=== PATIENT | female | born 1940 | race Caucasian/White ===

== ENCOUNTER → 2021-04-01 10:37 | Outpatient (BNVA) | payer MEDICARE, OTHER, SELFPAY | PROVIDERS: Family Provider Nurse Practitioner; PCP Nurse Practitioner; Visit Provider Nurse Practitioner Family | DX: E78.5 Hyperlipidemia, unspecified (principal); R73.09 Other abnormal glucose; I10 Essential (primary) hypertension; E55.9 Vitamin D deficiency, unspecified; Z00.00 Encounter for general adult medical examination without abnormal findings; E78.2 Mixed hyperlipidemia | CPT/HCPCS: 80053; 80061; 81003; 82043; 82306; 83036; 84443; 85025 ==

== ENCOUNTER 2022-03-03 04:56 | Inpatient (IN) | payer MEDICARE, OTHER, SELFPAY ==
[2022-03-03] VITALS (8 sets, daily range): BP systolic 117–155; BP diastolic 72–90; PULSE 60–70; RESP 13–22; TEMP 36.4–36.9; O2SAT 95–99; BMI 29.0
--- NOTE | 2022-03-03 05:04 | USCV_ITS ---
Christine Alvarez Age: 82 Gender: F : 1940 Exam Date: 03/03/2022 09:15 Ordering Phys: Shaka Yo MD Technologist: Renaldo Christine Exam Location: [facility] [place] Indication: chest pain BP: 155 / 80 HR: 70 Rhythm: Sinus Technical Quality: Adequate MEASUREMENTS (Male / Female) Normal Values 2D ECHO LV Diastolic Diameter PLAX 3.6 cm 4.2 - 5.9 / 3.9 - 5.3 cm LV Systolic Diameter PLAX 2.1 cm IVS Diastolic Thickness 0.8 cm 0.6 - 1.0 / 0.6 - 0.9 cm IVS Systolic Thickness 1.3 cm LVPW Diastolic Thickness 0.7 cm 0.6 - 1.0 / 0.6 - 0.9 cm LVPW Systolic Thickness 0.7 cm LVOT Diameter 2.0 cm LV Ejection Fraction 2D Teich 72.3 % LV Ejection Fraction MOD 2C 69.0 % LV Ejection Fraction 2C AL 70.9 % LA Diameter 3.1 cm LA Width 3.2 cm LA Height 4.6 cm RA Width 3.5 cm RA Height 3.9 cm Aorta at Sinotubular Diameter 2.8 cm IVC Diameter 1.9 cm M-MODE Aortic Annulus Diameter 3.4 cm LA Ao Ratio MM 0.9 MV E Point Septal Separation 0.6 cm DOPPLER AV Peak Velocity 160.0 cm/s LVOT Peak Velocity 112.0 cm/s AV Area Cont Eq vti 2.2 cm squared AV Area Cont Eq pk 2.3 cm squared MV Peak Velocity 106.0 cm/s MV Area PHT 5.6 cm squared Mitral E to A Ratio 0.5 MV E' Velocity 25.5 cm/s Mitral E to MV E' Ratio 5.6 Mitral E to LV E' Lateral Ratio 5.1 Mitral E to LV E' Septal Ratio 6.3 TR Peak Velocity 281.6 cm/s TR Peak Gradient 31.7 mmHg TR Mean Velocity 216.8 cm/s TR Mean Gradient 20.2 mmHg TR Velocity Time Integral 81.1 cm Right Atrial Pressure 3.0 mmHg Pulmonary Artery Systolic Pressu 34.7 mmHg RV Acceleration Time 0.1 s RV Ejection Time 0.3 s RV AcT/ET 0.3 FINDINGS Left Ventricle Normal left ventricular size. LV systolic function is normal with EF of 60-65%. No regional wall motion abnormalities. Grade 1 diastolic dysfunction is seen Right Ventricle The right ventricle is normal in size and function. Right Atrium The right atrium is normal in size. Left Atrium The left atrium is normal in size. Mitral Valve Structurally normal mitral valve without significant stenosis or prolapse. There is trace mitral regurgitation. Aortic Valve Structurally normal aortic valve without significant sclerosis or stenosis. There is no aortic regurgitation. Tricuspid Valve Structurally normal tricuspid valve without significant stenosis. Mild tricuspid regurgitation. RVSP is 35-40mmHg. This is consistent with mild pulmonary hypertension Pulmonic Valve Structurally normal pulmonic valve without significant stenosis. There is mild pulmonic regurgitation. Pericardium Normal pericardium without effusion. Aorta Normal ascending aorta dimension. IVC CONCLUSIONS LV systolic function is normal with EF 60-65%. Grade 1 diastolic dysfunction. Trace mitral regurgitation. Mild tricuspid regurgitation. Mild pulmonary hypertension is seen. Mild pulmonic regurgitation. No comparison studies are available Valente Robb MD (Electronically Signed) Final Date: 03 March 2022 10:53 S
--- NOTE | 2022-03-03 05:07 | ECG_ITS ---
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 Measurements Intervals [place] Rate: 52 P: 43 [place]: 186 QRS: -33 QRSD: 94 T: -18 QT: 459 QTc: 429 Interpretive Statements SINUS BRADYCARDIA WITH SINUS ARRHYTHMIA POSSIBLE LEFT ATRIAL ENLARGEMENT [-0.1mV P-WAVE IN V1/V2] LEFT AXIS DEVIATION [QRS AXIS < -30] PATTERN CONSISTENT WITH PULMONARY DISEASE INCOMPLETE RIGHT BUNDLE BRANCH BLOCK [90+ ms QRS DURATION, TERMINAL R IN V1/V2, 40+ ms S IN I/aVL/V4/V5/V6] No previous ECG available for comparison Electronically Signed On 03-03-2022 22:32:20 CDT by Anastasiya Brennan M.D. [id number]
--- NOTE | 2022-03-03 05:10 | P.HP_ITS ---
Providers/Chief Complaint Admitting Physician: Shaka Yo MD Primary Care Provider: OTTONIEL Rowe Chief Complaint: Chest Pain History of Present Illness Christine Alvarez is a 82 year old female with past medical history of hypertension went to [place] [facility] with chief complaint of bilateral jaw pain started today radiating down the neck, she denied any chest pain, palpitation, diaphoresis, dizziness, shortness of breath, cough, fever chills nausea vomiting. Upon arrival in the ER she was worked up for above-mentioned complaint. When I evaluated the patient here, she was not complaining of any neck pain, or jaw pain, at baseline she is very active person , has denied any chest pain or shortness of breath with exertion.She has smoked very briefly for 2 to 3 years, quit 5 years back. Pertinent imaging studies: EKG:SINUS BRADYCARDIA WITH SINUS ARRHYTHMIA POSSIBLE LEFT ATRIAL ENLARGEMENT. Pertinent labs: WBC 7.7, H&H:13/42 , plt : 231 , serum sodium 137 serum potassium 3.9, BUN serum creatinine 30/1.5 Troponin trend: - Patient was started on heparin drip in the ER, she also received aspirin.Morphine for pain. Review of Systems General: Reports: 10 or more systems reviewed and unremarkable except in HPI and below Const: Denies: fever(s), chills, body aches, change in appetite or diaphoresis Card: Denies: palpitations, edema, swelling of feet/ankles, dyspnea on exertion, orthopnea or leg pain with exertion Resp: Denies: dyspnea, productive cough, wheezing or pain on inspiration GI: Denies: abdominal pain, nausea, vomiting, diarrhea or constipation : Denies: flank pain Musc: Denies: back pain, extremity pain or extremity swelling Neuro: Denies: headache(s), difficulty walking or confusion Medications/Allergies Home Medications Medication Instructions Recorded Confirmed Last Taken Type triamterene 37.5 1 cap PO DAILY 03/03/22 03/03/22 1 Day Ago History mg-hydrochlorothiazide 25 mg ~03/02/22 capsule Allergies Allergy/AdvReac Type Severity Reaction Status Date / Time dexamethasone [From Decadron] Allergy ALGY-Hives Verified 03/03/22 05:15 iodine Allergy ALGY-Hives Verified 03/03/22 05:14 methylprednisolone Allergy ALGY-Hives Verified 03/03/22 05:15 PFSH Acute PFSH: Medical History Elevated hemoglobin A1c Fatigue Hyperlipemia Hypertension Medicare annual wellness visit, subsequent Vitamin D deficiency Surgical History Status post appendectomy Status post hysterectomy Social History Smoking and tobacco status: never smoked Alcohol intake: never Physical Exam Const: COMMON NORMALS: patient oriented x3 HENMT: COMMON NORMALS: normocephalic and atraumatic HEAD & SCALP: normocephalic and atraumatic Chest: CHEST: Yes Symmetrical chest wall rise Resp: COMMON NORMALS: normal respiratory effort, No retractions, No use of accessory muscles and clear to auscultation bilaterally EFFORT & INSPECTION: Yes symmetric chest movement AUSCULTATION: clear to auscultation bilaterally Cardio: COMMON NORMALS: regular rate, regular rhythm, S1 normal heart sound present, S2 normal heart sound present, No gallops present (Cardio), No murmurs present (Cardio), No rub (Cardio) and Peripheral pulses 2+ throughout RATE: regular rate RHYTHM: regular rhythm HEART SOUNDS: S1 normal heart sound present and S2 normal heart sound present PERIPHERAL PULSES: Peripheral pulses 2+ throughout GI: COMMON NORMALS: Normal to inspection, nondistended, normoactive bowel sounds present, Soft to palpation, non-tender, No hepatosplenomegaly present and no masses AUSCULTATION: Yes normoactive bowel sounds PALPATION: Yes Soft to palpation and Yes No hepatosplenomegaly present RECTAL EXAM: deferred Extremity: COMMON NORMALS: no clubbing, cyanosis or edema and no pedal edema Neuro: COMMON NORMALS: patient oriented x3 Data : 03/03/22 08:17 03/03/22 08:17 A&P Assessment and plan (1) Hypertension: Status: Acute (2) Hyperlipemia: Status: Acute Qualifiers: Hyperlipidemia type: mixed hyperlipidemia Qualified Code(s): E78.2 - Mixed hyperlipidemia (3) Chest pain: Status: Acute (4) NSTEMI (non-ST elevated myocardial infarction): Status: Acute Plan 82 year old female with past medical history of hypertension went to [facility] with chief complaint of bilateral jaw pain started today radiating down the neck, she denied any chest pain, palpitation, diaphoresis, dizziness, shortness of breath, cough, fever chills nausea vomiting. Assessment: NSTEMI Chest pain Hypertension Dyslipidemia CKD versus FLAVIO on CKD Plan: Follow 2D echo Follow 6-hour troponin Follow lipid panel Follow HbA1c Continue telemetry monitoring Aspirin 81 mg p.o. daily, statin, therapeutic lovenox Sublingual nitro as needed Continue gentle IV hydration with normal saline Monitor intake output charting Monitor BMP Avoid nephrotoxic's Cardiology consulted for CAG+-PCI CODE STATUS: Full code DVT prophylaxis: On Lovenox Attestations Medical Necessity Statement*: Patient is in hospital for management of chest pain,nstemi .Anticipated length of stay greater than 2 midnights. Time Spent in Patient Care: Greater than 35 minutes (>than 50% of time spent in counselling and/or direct pt care on unit) . Coding Level of Care Code Acute Staple Laster for Leesa Fwd Exam Detailed Diagnoses Hypertension I10 Hyperlipemia E78.2 Hyperlipidemia type: mixed hyperlipidemia Chest pain R07.9 NSTEMI (non-ST elevated myocardial infarction) I21.4
[2022-03-03] MEDS: amlodipine 5 mg Tablet PO (05:53)
[2022-03-03] MEDS: sodium chloride 0.9% 1,000 ML 75 ML IV ×2 (05:54→19:17)
[2022-03-03] MEDS: enoxaparin 80 mg/0.8 mL Syringe SUBCUT ×2 (08:15→20:17)
[2022-03-03 08:54] LABS: Basophils # 0.1 10^3/uL (0.0-0.1); Basophils % 0.8 %; Eosinophils % 0.3 %; Hematocrit 41.8 % (37.0-47.0); Hemoglobin 14.1 g/dL (11.5-15.3); Lymphocytes # 1.1 10^3/uL (0.8-4.8); Lymphocytes % 16.6 %; Mean Corpuscular HGB Conc 33.7 g/dL (30.0-36.0); Mean Corpuscular Hemoglobin 30.6 pg (28.0-34.0); Mean Corpuscular Volume 90.7 fl (81-99); Mean Platelet Volume 11.5 fL (7.4-10.4); Monocytes # 0.3 10^3/uL (0.2-0.9); Monocytes % 4.3 %; Neutrophils # 5.11 10^3/uL (1.8-7.7); Neutrophils % 77.8 %; Nucleated Red Blood Cells % 0 %; Platelet Count 229 10^3/cmm (130-400); Red Blood Count 4.61 10^6/uL (4.1-5.3); Red Cell Distribution Width 14.2 % (12.1-15.1); White Blood Count 6.6 10^3/uL (4.0-10.0)
[2022-03-03 09:27] LABS: Troponin T (5th) Once 574 ng/L (0-10)
[2022-03-03 09:28] LABS: Alanine Aminotransferase 15 U/L (0-33); Albumin Level 3.8 g/dL (3.5-5.2); Alkaline Phosphatase 77 IU/L (35-105); Anion Gap 12.9 (5-19); Aspartate Amino Transferase 41 U/L (0-32); Blood Urea Nitrogen 27 mg/dL (8-23); Carbon Dioxide 25 mmol/L (22-29); Chloride 99 mmol/L (98-107); Globulin 3.4 g/dL (1.3-4.6); Glucose 107 mg/dL (65-115); Osmolality Calculated 282 mOsm/kg (285-295); Potassium 3.9 mmol/L (3.5-5.1); Sodium 133 mmol/L (136-145); Total Bilirubin 0.3 mg/dL (0.15-1.2); Total Protein 7.2 g/dL (6.6-8.7)
[2022-03-03] MEDS: aspirin 81 mg EC Tablet PO (10:03)
--- NOTE | 2022-03-03 10:30 | PM.CONSULT ---
Providers/Reason For Consult Consulting Physician/Specialty*: Dr. Brennan, Cardiology Reason for Consult*: NSTEMI Attending Physician: Matilde Herr MD Primary Care Provider: OTTONIEL Rowe History of Present Illness History of Present Illness Christine Alvarez is a 82 year old female past medical history of hypertension and presented to [place] ER with chief complaint of bilateral jaw pain that started earlier this morning and woke her up for sleep with some radiating down the neck. She denied any chest pain, palpitation, diaphoresis, dizziness, shortness of breath, cough, fever chills nausea vomiting. She is pretty active at baseline. She lives with her and goes to her basement 2-3 times/day. She has been under some stress lately d/t 's health. The episode lasted about one and half hours. She has smoked very briefly for 2 to 3 years, quit 5 years back. Labs with WBC 7.7, H&H:13/42 , plt : 231 , serum sodium 137 serum potassium 3.9, BUN, serum creatinine 30/1.5. Troponin trend:17-52 -547. EKG showed sinus bradycardia, left axis deviation and non specific T wave inversion. Patient was started on heparin drip at outside ER, received aspirin, Morphine and was transferred for further evaluation. She denies any neck pain, or jaw pain, chest pain or shortness of breath with exertion. Review of Systems General: Reports: 10 or more systems reviewed and unremarkable except in HPI and below Const: Denies: fever(s), chills, body aches, change in appetite or diaphoresis Card: Denies: palpitations, edema, swelling of feet/ankles, dyspnea on exertion, orthopnea or leg pain with exertion Resp: Denies: dyspnea, productive cough, wheezing or pain on inspiration GI: Denies: abdominal pain, nausea, vomiting, diarrhea or constipation : Denies: flank pain Musc: Denies: back pain, extremity pain or extremity swelling Neuro: Denies: headache(s), difficulty walking or confusion Medications/Allergies Home Medications Medication Instructions Recorded Confirmed Last Taken Type triamterene 37.5 1 cap PO DAILY 03/03/22 03/03/22 1 Day Ago History mg-hydrochlorothiazide 25 mg ~03/02/22 capsule Allergies Allergy/AdvReac Type Severity Reaction Status Date / Time dexamethasone [From Decadron] Allergy ALGY-Hives Verified 03/03/22 05:15 iodine Allergy ALGY-Hives Verified 03/03/22 05:14 methylprednisolone Allergy ALGY-Hives Verified 03/03/22 05:15 Current Medications Generic Name Dose Route Start Last Admin Trade Name Leonidesq PRN Reason Stop Dose Admin Aspirin 81 mg 03/03/22 09:00 03/03/22 10:03 Aspirin 81 Mg Ec Tablet PO 81 mg DAILY MIROSLAVA Administration Sodium Chloride 1,000 mls @ 75 mls/hr 03/03/22 05:15 03/03/22 05:54 Sodium Chloride 0.9% IV 75 mls/hr .[id number] MIROSLAVA Administration PFSH Acute PFSH: Medical History Elevated hemoglobin A1c Fatigue Hyperlipemia Hypertension Medicare annual wellness visit, subsequent Vitamin D deficiency Surgical History Status post appendectomy Status post hysterectomy Social History Smoking and tobacco status: never smoked Alcohol intake: never Vitals/I&O/Wt Last Vital Signs Temp 97.5 F L 03/03/22 07:34 Pulse 61 03/03/22 07:34 Resp 13 03/03/22 07:34 BP 132/81 03/03/22 07:34 Pulse Ox 97 03/03/22 07:34 03/02/22 03/03/22 03/03/22 22:59 06:59 14:59 Intake Total 360 / 360 Balance 360 / 360 Weight last 48 hrs Weight 185 lb 9.6 oz Physical Exam Narrative: GENERAL: Averagely built and averagely nourished in no acute distress HEENT: Extraocular movement intact. No pallor or icterus. NECK: central trachea, No JVD, No carotid bruit. CARDIOVASCULAR SYSTEM: S1-S2 regular. No S3 or S4 present. No murmur rubs or gallops. RESPIRATORY SYSTEM: Chest clear to auscultation. No wheezes rhonchi or rubs heard. No use of accessory muscles. ABDOMEN: Soft, nontender and nondistended. Normal bowel sounds present. EXTREMITIES: No cyanosis or edema. No signs of chronic venous insufficiency. LETTERPRESS SETTER: Patient is alert oriented ?3. No focal neurological deficits. SKIN: Normal turgor and temperature. PSYCH: Normal insight and judgment. Data : 03/03/22 08:17 03/03/22 08:17 A&P Assessment and plan (1) NSTEMI (non-ST elevated myocardial infarction): CAD risk factors of age, HTN and smoking LHC in am based on renal function. -will f/u on echo Risks and benefits were discussed with the patients. Alternate management options were discussed with the patient as well. Possible complications including risk of heart attack stroke and , coronary perforation, arrhythmia, cardiac tamponade in urgent CABG were discussed with the patient as well. Status: Acute (2) Hypertension: Status: Acute (3) Hyperlipemia: Status: Acute Qualifiers: Hyperlipidemia type: mixed hyperlipidemia Qualified Code(s): E78.2 - Mixed hyperlipidemia Plan FLAVIO Thank you for allowing me to participate in patient's care. Please feel free to call with questions or concerns. Coding Level of Care Code Acute Research Laboratory Manager for Leesa Goodrich Diagnoses NSTEMI (non-ST elevated myocardial infarction) I21.4 Hypertension I10 Hyperlipemia E78.2 Hyperlipidemia type: mixed hyperlipidemia
[2022-03-03] MEDS: clopidogrel 300 mg Tablet PO (13:36)
[2022-03-03] MEDS: pantoprazole DR 40 mg Tablet PO (13:36)
--- NOTE | 2022-03-03 14:32 | PM.MISC ---
Miscellaneous Note Purpose of Documentation: Seen this morning. Note: Seen this morning. Continue management as per history and physical. Family updated bedside. Preliminary plan is to go for angiogram in a.m. N.p.o. at midnight. Cardiology on board.
[2022-03-03] MEDS: atorvastatin 40 mg Tablet PO (20:16)
[2022-03-04] VITALS (57 sets, daily range): BP systolic 110–158; BP diastolic 65–96; PULSE 59–95; RESP 7–29; TEMP 36.7–36.8; O2SAT 92–99
[2022-03-04] MEDS: hydrocortisone 100 mg/2 mL SDV 200 MG IVP ×2 (01:06→05:03)
[2022-03-04 04:14] LABS: Basophils % 0.7 %; Eosinophils # 0.1 10^3/uL (0.0-0.8); Eosinophils % 1.3 %; Hematocrit 39.2 % (37.0-47.0); Hemoglobin 12.7 g/dL (11.5-15.3); Lymphocytes # 0.9 10^3/uL (0.8-4.8); Lymphocytes % 14.4 %; Mean Corpuscular HGB Conc 32.4 g/dL (30.0-36.0); Mean Corpuscular Hemoglobin 29.9 pg (28.0-34.0); Mean Corpuscular Volume 92.2 fl (81-99); Mean Platelet Volume 11.6 fL (7.4-10.4); Monocytes # 0.2 10^3/uL (0.2-0.9); Monocytes % 3.6 %; Neutrophils # 4.87 10^3/uL (1.8-7.7); Neutrophils % 79.8 %; Nucleated Red Blood Cells % 0 %; Platelet Count 204 10^3/cmm (130-400); Red Blood Count 4.25 10^6/uL (4.1-5.3); Red Cell Distribution Width 14.1 % (12.1-15.1); White Blood Count 6.1 10^3/uL (4.0-10.0)
[2022-03-04 04:41] LABS: Estmated Average Glucose 151; Hemoglobin A1C 6.9 % (4.0-6.0)
[2022-03-04 04:42] LABS: Alanine Aminotransferase 13 U/L (0-33); Albumin Level 3.2 g/dL (3.5-5.2); Alkaline Phosphatase 65 IU/L (35-105); Anion Gap 13.9 (5-19); Aspartate Amino Transferase 33 U/L (0-32); Blood Urea Nitrogen 18 mg/dL (8-23); Calcium 8.9 mg/dL (8.5-10.5); Carbon Dioxide 26 mmol/L (22-29); Chloride 105 mmol/L (98-107); Chol HDL Ratio 4.18 mg/dL (0.0-4.40); Cholesterol 167 mg/dL (0-200); Globulin 2.8 g/dL (1.3-4.6); Glucose 112 mg/dL (65-115); HDL Cholesterol 40 mg/dL (60-100); LDL Cholesterol Calculated 106 mg/dL (50-129); LDL HDL Ratio 2.65 RATIO (0.00-3.22); Osmolality Calculated 295 mOsm/kg (285-295); Potassium 3.9 mmol/L (3.5-5.1); Sodium 141 mmol/L (136-145); Thyroid Stimulating Hormone 1.93 uIU/mL (0.27-4.20); Total Bilirubin 0.3 mg/dL (0.15-1.2); Triglycerides 103 mg/dL (0-150)
[2022-03-04] MEDS: diphenhydrAMINE 50 mg/mL SDV 1mL IVP (05:03)
--- NOTE | 2022-03-04 06:00 | XACV_ITS ---
Exam Room: [facility] Ht: 170 cm Wt: 85 kg BSA: 2.03 m2 Gender: Female : 1940 Any Known Allergies: Other Exam Priority: Routine Procedure(s): Procedure Description: Diagnostic procedure Procedure Description: PCI procedure Procedure Description: Drug Eluting Coronary Stent Procedure Description: PTCA Procedure Description: Miscellaneous Procedure Description: ACT Procedure Description: Coronary Angiography Diagnostic Cath Status: Urgent Diagnostic Findings * 82-year-old female with past medical history of hypertension presented with bilateral jaw pain and fifth generation troponin T increased from 17 at baseline to 547. EKG with sinus bradycardia, left axis deviation and nonspecific T wave inversion. * Angiography shows a right coronary dominant system. * Normal left main with no significant stenosis. * Normal caliber left anterior descending artery with tortuous diagonals. Proximal left anterior descending artery with mild 20% stenosis. Minor irregularities in proximal segment of mid LAD. * Normal circumflex with mild 20% stenosis in mid circumflex. Tortuous obtuse marginals. * Right coronary artery with moderate 60% stenosis of proximal RCA. Mid to distal segment of proximal right coronary artery with 2 sequential severe 70-80% stenosis. * Case was discussed and images were reviewed with Dr. Robb. PCI Status: Elective PCI Indication: NSTE - ACS Interventional Findings * PROCEDURE DETAIL: We engaged RCA with JR4 guide catheter. IV heparin was administered to maintain ACT above 250 S. 0.014 run-through guidewire was used to cross proximal to mid RCA stenosis. We predilated the stenosis with 2.5 x 15 mm semicompliant balloon. This was followed by placement of 3.0 x 30 mm resolute Tracy drug-eluting stent. We postdilated the stent with 3.0 x 8 mm NC balloon. At this time final angiogram was performed that showed excellent stent expansion, no residual stenosis and CHRISTIE-3 flow. Guidewire and guide catheter were removed. Patient left the Human Resources Representative in a stable condition.. * Proximal Right Coronary Artery: 70% stenosis treated with a AB TREK 2.50X15 RX BALLOON, EVON Loo LAURA 3.0X30 CORBY, and EVON TEJEDA EUPHORA RX [id number] BALLOON. 0% residual stenosis, CHRISTIE: 3 flow. Conclusions 1. There is severe proximal to mid right coronary artery stenosis. Status post successful revascularization with CORBY x1. 2. Proximal Right Coronary Artery was treated with a Balloon, Drug Eluting Stent, and Balloon. Recommendations * Statin and aspirin 81mg lifelong, if tolerated. * Continue Plavix 75mg p.o. daily for at least one year. * Outpatient cardiology follow-up in 4 weeks. Interventional RX Recommendation: PCI w/o planned CABG Diagnostic RX Recommendation: PCI w/o planned CABG Anticoagulation: Heparin Pressures Phase:Rest AO : 124 / 70 ( 96 ) @ 7:26:00 AM 125 / 63 ( 91 ) @ 7:27:00 AM 122 / 72 ( 94 ) @ 7:29:00 AM 121 / 76 ( 98 ) @ 7:37:00 AM 127 / 63 ( 90 ) @ 7:39:00 AM 126 / 64 ( 90 ) @ 7:43:00 AM 127 / 66 ( 93 ) @ 8:08:00 AM 126 / 65 ( 93 ) @ 8:11:00 AM 135 / 79 ( 102 ) @ 8:30:00 AM 112 / 70 ( 89 ) @ 8:33:00 AM 129 / 80 ( 102 ) @ 8:37:00 AM 162 / 94 ( 124 ) @ 8:38:00 AM 106 / 59 ( 80 ) @ 8:41:00 AM Clinical Evaluation EBL: 5mL-10mL Procedural Details Pre-Procedure Time Out. Identified patient by full name and date of as verbalized by the patient/guarantor. Does the consent match the physician's order: Yes. Accurate & Complete Informed Consent: Yes. Inpatient/Outpatient History & Physical on Chart: Yes. If H&P is completed, is and addenduem needed: No; If yes, is the addendum complete: N/A. Visualize and Verify Site with Patient/Guarantor: N/A. Relevant Radiology Images available: Yes. Pre-op teaching completed and patient verbalized understanding. The risks, benefits, and alternatives of sedation and/or procedure were discussed by physician. The patient agrees to continue. Procedure started. PERRLA. Strong, equal hand solutions manager bilaterally. Lungs clear x 5 lobes. IV Site on Arrival: 18 gauge in the left anticubital. IV Fluids: 0.9% NaCl at KVO. 0 mL infused prior to seed analysis laboratory assistant. Pre Procedural Pulses: right radial was 3+. Oxygen started at 2liters/min via nasal canula. right groin was prepped with chloroprep then draped in the usual sterile fashion. right radial was prepped with chloroprep then draped in the usual sterile fashion. Physician notified. Baseline sample Acquired. HR: 89 BPM. [facility] Clinical Fraility Score: 3: Managing Well. Human Resources Representative Indications: ACS > 24 hours. Chest Pain Symptom Assessment: Atypical Angina. Correct patient, site and procedure confirmed by cath team. Current diagnosis: NSTEMI. Physician arrived. Physician scrubbed in. Immediate Pre-Procedure Time Out. Correct Patient: Yes; Correct Procedure: Yes; Correct Site: Yes; Correct Patient Position: Yes; Correct Supplies: Yes; Dried Flammable Prep: Yes; Blood Products Available: N/A;. Lidocaine 1% infiltrated to the right radial. Arterial access obtained. A 5 north korean TIG catheter in over wire. wire out. contrast injected through the catheter. wire out. glidewire inserted through the catheter. standard wire inserted. wire out. Sample taken: AO 122/72(94), HR: 75 BPM, SpO2: 95%, Respiration: Null. Multiple views taken of left coronary artery. Catheter redirected to the RCA. Multiple views taken of right coronary artery. Dr. Robb called to review films. Catheter removed over the standard wire. Side port of sheath attached to Normal Saline flush at KVO to maintain patency. Physician scrubbed out. Dr. Robb arrived. Dr. Robb scrubbed in. 6 north korean JR 4 guide catheter was inserted over the glidewire. Runthrough guidewire was advanced through the guide catheter to lesion in the mid RCA. Wire out. Guide catheter out. A TR Band was successful obtaining hemostatsis at the Right Radial artery insertion site. Lidocaine 1% infiltrated to the right groin. Arterial access obtained with micropuncture set. wire and needle out. manual pressure held on access site. Arterial access obtained with micropuncture set. wire out. contrast hand injected through the needle. needle out. Lidocaine 1% infiltrated to the left groin. Arterial access obtained with micropuncture set. 6 north korean JR 4 guide catheter was inserted over the wire. ACT drawn. Results 284 seconds. Therapeutic limits - pre-heparin administration 90-150 seconds and monitoring heparin during a vascular procedure >250 seconds. Runthrough guidewire was advanced through the guide catheter to lesion in the mid RCA. Inflation number : 1 A AB TREK 2.50X15 RX BALLOON was prepped and advanced across the Prox RCA , then inflated to 8 JANA for 0:26 seconds. Inflation number: 2 The AB TREK 2.50X15 RX BALLOON was reinflated across the Prox RCA, to 8 JANA for 0:22 seconds. Balloon out. Inflation Number : 3 A MDT R LAURA 3.0X30 CORBY -Lot Number# _[id number] EXP: 11/11/2024 was prepped and advanced across the Prox RCA. The stent was deployed at 12 JANA for 0:32 seconds. Results checked. Stent balloon out over wire. Inflation number : 4 A MDT NC EUPHORA RX [id number] BALLOON was prepped and advanced across the Prox RCA , then inflated to 12 JANA for 0:21 seconds. Inflation number: 5 The MDT NC EUPHORA RX [id number] BALLOON was reinflated across the Prox RCA, to 12 JANA for 0:15 seconds. Balloon out. Results checked. Wire out. ACT drawn. Results 317 seconds. Therapeutic limits - pre-heparin administration 90-150 seconds and monitoring heparin during a vascular procedure >250 seconds. Guide catheter out. A Left femoral angiogram was performed to determine safe placement of closure device. Sheath(s) sutured into position with 2-0 silk and sterile 4x4's and Op-site applied over the site. No oozing or signs and symptoms of hematoma noted. A Suture was successful obtaining hemostatsis at the Left Femoral artery insertion site. Arterial sheath flushed and connected to tranducer and pressure bag with heparinized saline. Post Procedure: Pulses reassessed and unchanged. PERRLA. Strong, equal hand solutions manager bilaterally. No VTE prophylaxis required. ACT drawn. Results 219 seconds. Therapeutic limits - pre-heparin administration 90-150 seconds and monitoring heparin during a vascular procedure >250 seconds. Medication's Wasted: Nitro = 49.6 mg. Total IV fluids: 143 mL. Medication's Wasted: Heparin = 3000 units. Complications: None. Estimated blood loss: 5mL-10mL. Responsiveness - Normal response to verbal stimuli; alert and oriented, PERRLA. Airway - Unaffected, no intervention required; spontaneous ventilation. Circulation: W/N/L, pulses unchanged. Nausea/Vomiting: No. Procedure completed. Vital chart was stopped. Patient transferred by bed to [facility]. Access Site Site: Right Radial artery Sheath Size: 6 Fr Hemostasis Method: TR Band Hemostasis Success: Successful Site: Left Femoral artery Sheath Size: 6 Fr Hemostasis Method: Suture Hemostasis Success: Successful Procedure Medications Start: 5:56 AM Stop: 5:56 AM Medication: Fentanyl Amount: 25 mcg Route: I.V. Start: 6:18 AM Stop: 6:18 AM Medication: Nitrogylcerin Amount: 200 mcg Route: I.A. Start: 6:30 AM Stop: 6:30 AM Medication: Heparin Amount: 5000 units Route: I.V. Start: 6:35 AM Stop: 6:35 AM Medication: Versed Amount: 0.5 mg Route: I.V. Start: 6:18 AM Stop: 6:18 AM Medication: Versed Amount: 0.5 mg Route: I.V. Start: 7:01 AM Stop: 7:01 AM Medication: Versed Amount: 1 mg Route: I.V. Start: 7:09 AM Stop: 7:09 AM Medication: Heparin Amount: 5000 units Route: I.V. Start: 7:17 AM Stop: 7:17 AM Medication: Fentanyl Amount: 25 mcg Route: I.V. Start: 7:42 AM Stop: 7:42 AM Medication: Nitrogylcerin Amount: 200 mcg Route: I.C. Start: 7:51 AM Stop: 7:51 AM Medication: Heparin Amount: 2000 units Route: I.V. Start: 7:55 AM Stop: 7:55 AM Medication: Plavix Amount: 300 mg Route: P.O. I, the attending physician, have reviewed and verified all procedure medications. Yes, all medications given per verbal order History/Risk Factors Hypertension: Yes Dyslipidemia: No Peripheral Arterial Disease (PAD): No Myocardial Infarction (SC): No Obesity: No Renal Disease: No Prior Interventions PCI: No CABG: No Valve Surgery: No Report Signatures Interventional Workflow Finalized by Valente Robb MD on 03/16/2022 10:11 AM Diagnostic Workflow Finalized by Anastasiya Brennan MD on 03/09/2022 04:14 PM
--- NOTE | 2022-03-04 06:11 | W.PM.OPSUD ---
Surgery/Procedure H&P Update DATE OF PROCEDURE: March 04, 2022 DATE H&P PERFORMED: 03/03/22 H&P UPDATE INFORMATION: I have reviewed H&P completed within last 30 days, I have examined patient prior to procedure and No changes to prior documentation PRIMARY INDICATION FOR PROCEDURE: NSTEMI PLANNED PROCEDURE: Left heart cathetarization PATIENT REASSESSED PRIOR TO SEDATION, WITH NO CHANGE NOTED: Yes PHYSICAL EXAM: alert, oriented x 3, clear to auscultation bilaterally and regular rate & rhythm AIRWAY EVAL/ANESTHESIA PLAN: normal airway, ASA III, Local Anesthesia, Risks, benefits & alternatives of sedation and/or procedure discussed and Patient agrees to continue as planned
[2022-03-04] MEDS: sodium chloride 0.9% 1,000 ML 75 ML IV ×2 (08:25→19:20)
[2022-03-04] MEDS: aspirin 81 mg EC Tablet PO (08:29)
[2022-03-04] MEDS: pantoprazole DR 40 mg Tablet PO (08:29)
--- NOTE | 2022-03-04 10:41 | PC.CHAP ---
Pastoral Care Encounter/Spiritual Assessment Type of Contact [] Declined lining mechanic visit [] Patient/Family/Request visit [] Outpatient visit [] Follow-up visit [] Physician referral [] Code/Alert [x] Routine visit [] Staff referral [] Actively dying [] Patient sleeping [] Family support [] [] Out of room [] Palliative care [] [x] Receiving care in room [] Pre-surgical visit [] Trauma [] Long length of stay [] ICU visit [] Other: Relational/Emotional Strength [x] Patient feels connected with others/family/visitors/staff [] Distress [] Loneliness/isolation [] Abandonment Spirituality of Patient [x] Person of Bridget [] Attends Jain of their Bridget [x] Believes in Prayer [] Reads Bible or Voodoo materials [] There are Spiritual issues to be addressed Skein Yarn Dyer Helper Interventions [x] Prayer [x] Active listening [x] Non-anxious presence [x] Spiritual/emotional support [] Crisis/trauma care [x] Spiritual counseling [] Bereavement support [] Provided bereavement packet [] Provided Bible/devotional materials [] Provided toy/stuffed animal, coloring book to patient or family member [] Provided Communion [] Anointing/[place] [] Salvation [x] Completed spiritual assessment [] Other: Impact on Illness or Injury [] Angry [] Fearful [] Anxious [] Often cries [] Exhaustion [] Unable to work [] Unable to attend baptist [] Unable to walk/stand [] Unable to read [] Unable to drive [] Unable to eat/drink [] Unable to sleep [] Unable to be with family [] Patient intubated [] Other: Summary had proceeduer two stents is going home has a good attitude Time spent with patient
[2022-03-04 11:56] LABS: Partial Thromboplastin Time > 250.0 SECONDS (23.9-36.7)
--- NOTE | 2022-03-04 12:03 | P.PN_ITS ---
Subjective Subjective: Seen this morning. 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 She had 1 stent placed to RCA. Femoral access and radial access was used. Patient currently has a TR band and sheath. Otherwise doing okay no active complaints. Vitals/I&O/Wt Last Vital Signs Temp 98.3 F 03/04/22 04:00 Pulse 82 03/04/22 10:45 Resp 17 03/04/22 10:45 BP 129/75 03/04/22 10:45 Pulse Ox 97 03/04/22 10:45 03/03/22 03/04/22 03/04/22 22:59 06:59 14:59 Intake Total 1836 / 2436 1103 / 1103 Balance 1836 / 2436 1103 / 1103 Weight last 48 hrs Weight 84.187 kg Physical Exam Narrative: General: Alert oriented x3, patient seen laying in bed appearing comfortable at this time HEENT: Normocephalic, atraumatic, EOMI, breathing 2 L nasal cannula. Cardio: Regular rate rhythm, normal S1-S2, no murmurs Respiratory: Good bilateral air entry, no wheezes no rhonchi appreciated, clear to auscultation bilaterally GI: Abdomen soft, nontender, nondistended, bowel sounds + Behavior: Appropriate and cooperative Extremities: No lower extremity edema., no cyanosis Data : 03/04/22 03:31 03/04/22 03:31 A&P Assessment and plan (1) NSTEMI (non-ST elevated myocardial infarction): Status: Acute (2) Chest pain: Status: Acute (3) Medicare annual wellness visit, subsequent: Status: Acute (4) Fatigue: Status: Acute (5) Hyperlipemia: Status: Acute Qualifiers: Hyperlipidemia type: mixed hyperlipidemia Qualified Code(s): E78.2 - Mixed hyperlipidemia (6) Elevated hemoglobin A1c: Status: Acute (7) Hypertension: Status: Acute (8) Vitamin D deficiency: Status: Acute Plan #NSTEMI status post PCI CORBY x1 RCA #Hyperlipidemia #Vitamin D deficiency #Hypertension ? Continue aspirin Plavix atorvastatin ? Continue normal saline 75 cc/h ? Protonix 40 daily ? Hold triametrene hydrochlorothiazide as pressure is okay. ? Monitor in the hospital today Full code DVT prophylaxis: Lovenox Attestations Medical Necessity Statement*: Status post cath today. Monitor in hospital tonight. We will need to monitor for FLAVIO given contrast load. If patient continues to do well most likely discharge tomorrow. Coding Level of Care Code Acute Hot Frame Tender for Chg Fwd Diagnoses NSTEMI (non-ST elevated myocardial infarction) I21.4 Chest pain R07.9 Medicare annual wellness visit, subsequent Z00.00 Fatigue R53.83 Hyperlipemia E78.2 Hyperlipidemia type: mixed hyperlipidemia Elevated hemoglobin A1c R73.09 Hypertension I10 Vitamin D deficiency E55.9
--- NOTE | 2022-03-04 12:45 | PC.NURSE ---
Lanier insertion Upon preparing pt for an insertion of Lanier catheter, noted hematoma on left groin. Primary ROSENDO Paniagua alerted on the noted hematoma formation. Hematoma marked around 4.5 cm x3cm in diameter,pt has tenderness upon palpation. pt reports of unable to urinate. lanier cath inserted. she tolerated the insertion well. ROSENDO Paniagua alerted Dr Brennan thru pt's bedside telephone. we will keep monitoring her neurovascular.
[2022-03-04] MEDS: morphine 4 mg/mL SDV 1 mL 2 MG IVP (16:57)
--- NOTE | 2022-03-04 17:15 | PC.NURSE ---
Sheath Pull Explained procedure to pt. Primary RN Arcelia at bedside as well. Femoral artery felt on left groin. Hematoma size is unchanged from previous assessment. W/draw 10 cc of blood from arterial sheath line. 6 Fr arterial sheath removed w/o any difficulty. 6 Fr arterial sheath is intact upon removal. No new hematoma, bleeding or swelling noted during sheath pull. Old hematoma is getting softer and smaller upon applying manual pressure. Manual pressure held for at least 35 mins. Hemostasis achieved. Left DP and L PT are both palpable to the touch +3. Foot is warm. Pt tolerated the procedure well. Applied 2x2 dressing and covered with tegaderm. Educated pt on bedrest post sheath removal and to notify nurse immediately for any unusual pain, pressure or burning sensation on left groin and left LE. pt verbalizes understanding.
[2022-03-04 19:10] LABS: Partial Thromboplastin Time 49.3 SECONDS (23.9-36.7)
[2022-03-04] MEDS: atorvastatin 40 mg Tablet PO (19:19)
--- NOTE | 2022-03-04 19:24 | PC.NURSE ---
Received report from ROSENDO Paniagua. Patient is s/p [facility] with left femoral access. Received in report of small hematoma formation which upon assessment has resolved. Area to left groin is currently bruised however soft and supple. Patient denies pain to site. Patient reports feeling better and is readyd to go home tomorrow. Provided instructed regarding antiplatlet medication and aspirin and stressed there importance and necessity. Patient and family at bedside all verbalized complete understanding. Patient will be able to ambulate 03/05/22 at 0001. Patient has lanier catheter in place. Patient denies pain or needs. Will continue to monitor.
[2022-03-05] VITALS: BP 124/76; BP 127/76; PULSE 82; PULSE 83; RESP 15; RESP 16; TEMP 36.6; O2SAT 95; O2SAT 97
[2022-03-05 01:00] VITALS: BP 128/77; PULSE 72; RESP 9; O2SAT 98
[2022-03-05 04:00] VITALS: BP 133/82; PULSE 74; RESP 16; TEMP 36.6; O2SAT 95
[2022-03-05 04:32] LABS: Basophils % 0.4 %; Eosinophils % 0.1 %; Hematocrit 30.3 % (37.0-47.0); Hemoglobin 10.3 g/dL (11.5-15.3); Lymphocytes # 1.6 10^3/uL (0.8-4.8); Lymphocytes % 15.7 %; Mean Corpuscular Hemoglobin 30.7 pg (28.0-34.0); Mean Corpuscular Volume 90.2 fl (81-99); Mean Platelet Volume 11.1 fL (7.4-10.4); Monocytes # 0.7 10^3/uL (0.2-0.9); Monocytes % 7.4 %; Neutrophils # 7.65 10^3/uL (1.8-7.7); Nucleated Red Blood Cells % 0 %; Platelet Count 181 10^3/cmm (130-400); Red Blood Count 3.36 10^6/uL (4.1-5.3); Red Cell Distribution Width 14.2 % (12.1-15.1); White Blood Count 10.1 10^3/uL (4.0-10.0)
[2022-03-05 04:55] LABS: Alanine Aminotransferase 10 U/L (0-33); Albumin Level 2.9 g/dL (3.5-5.2); Alkaline Phosphatase 58 IU/L (35-105); Anion Gap 12.5 (5-19); Aspartate Amino Transferase 19 U/L (0-32); Blood Urea Nitrogen 25 mg/dL (8-23); Calcium 8.3 mg/dL (8.5-10.5); Carbon Dioxide 27 mmol/L (22-29); Chloride 105 mmol/L (98-107); Globulin 2.5 g/dL (1.3-4.6); Glucose 87 mg/dL (65-115); Osmolality Calculated 296 mOsm/kg (285-295); Potassium 3.5 mmol/L (3.5-5.1); Sodium 141 mmol/L (136-145); Total Bilirubin 0.2 mg/dL (0.15-1.2); Total Protein 5.4 g/dL (6.6-8.7)
[2022-03-05 05:08] VITALS: PULSE 75
--- NOTE | 2022-03-05 06:10 | PC.NURSE ---
Patient up ambulating without difficulty. Patient requesting to have lanier catheter removed at this time. Left groin site remains c,d,i without s/s of bleeding or hematoma formation observed. Patient stated, I am ready to go home. Patient denies other needs. No distress observed. Will continue to monitor.
--- NOTE | 2022-03-05 07:11 | PM.PN ---
Subjective Subjective: s/p CORBY to px RCA yesterday Medications: Reviewed: Yes Vitals/I&O/Wt Last Vital Signs Temp 97.9 F 03/05/22 04:00 Pulse 75 03/05/22 05:08 Resp 16 03/05/22 04:00 BP 133/82 03/05/22 04:00 Pulse Ox 95 03/05/22 04:00 03/04/22 03/05/22 03/05/22 22:59 06:59 14:59 Intake Total 1360 / 2703 850 / 3553 Output Total 800 / 800 1200 / 2000 Balance 560 / 1903 -350 / 1553 Weight last 48 hrs Weight 196 lb 11.2 oz Physical Exam Narrative: GENERAL: Averagely built and averagely nourished in no acute distress HEENT: Extraocular movement intact. No pallor or icterus. NECK: central trachea, No JVD, No carotid bruit. CARDIOVASCULAR SYSTEM: S1-S2 regular. No S3 or S4 present. No murmur rubs or gallops. RESPIRATORY SYSTEM: Chest clear to auscultation. No wheezes rhonchi or rubs heard. No use of accessory muscles. ABDOMEN: Soft, nontender and nondistended. Normal bowel sounds present. EXTREMITIES: No cyanosis or edema. No signs of chronic venous insufficiency. PRESS OPERATOR CARBON BLOCKS: Patient is alert oriented ?3. No focal neurological deficits. SKIN: Normal turgor and temperature. PSYCH: Normal insight and judgment. Const: COMMON NORMALS: alert Resp: COMMON NORMALS: clear to auscultation bilaterally AUSCULTATION: clear to auscultation bilaterally Neuro: SENSORIUM/ORIENTATION: Yes alert Urinary Catheter Management: Ortiz Latex Free: Cath Placed During This Visit: yes, but has since been removed by the nurse Reason for Continuing Indwelling Catheter: Acute Urinary Retention or Obstruction Urinary Catheter Date of Insertion: 03/04/22 Urinary Catheter Time of Insertion: 13:00 Date Urinary Catheter Removed: 03/05/22 Time Urinary Catheter Discontinued: 06:14 Data : 03/05/22 03:56 03/05/22 03:56 A&P Assessment and plan (1) NSTEMI (non-ST elevated myocardial infarction): CAD risk factors of age, HTN and smoking LHC in am based on renal function. -Normal LV function on echo -s/p CORBY to px RCA continue DAPT, statin and metoprolol. -f/u with Kandi in 1 week and with me in 2 months Status: Acute (2) Hypertension: Status: Acute (3) Hyperlipemia: Status: Acute Qualifiers: Hyperlipidemia type: mixed hyperlipidemia Qualified Code(s): E78.2 - Mixed hyperlipidemia Plan FLAVIO: f/u BMP in 1 weel Mild anemia Thank you for allowing me to participate in patient's care. Please feel free to call with questions or concerns. Attestations Medical Necessity Statement*: stable to be discharged home Coding Level of Care Code Acute Nuisance Wildlife Control Operator for Chg Fwd Exam Expanded Problem Focused Diagnoses NSTEMI (non-ST elevated myocardial infarction) I21.4 Hypertension I10 Hyperlipemia E78.2 Hyperlipidemia type: mixed hyperlipidemia
[2022-03-05 08:00] VITALS: BP 147/74; PULSE 78; RESP 16; TEMP 36.7; O2SAT 93
[2022-03-05] MEDS: pantoprazole DR 40 mg Tablet PO (08:12)
[2022-03-05] MEDS: aspirin 81 mg EC Tablet PO (08:12)
[2022-03-05] MEDS: clopidogrel 75 mg Tablet PO (08:12)
[2022-03-05] MEDS: enoxaparin 40 mg/0.4 mL Syringe SUBCUT (08:12)
[2022-03-05 10:35] VITALS: BP 147/96; PULSE 84; RESP 24; O2SAT 94
--- NOTE | 2022-03-05 11:16 | P.DS_ITS ---
Discharge Providers Date of Admission: 03/03/22 04:56 Date of Discharge: March 05, 2022 Attending Provider at Admission: Shaka Yo MD Attending Provider at Discharge: Matilde Herr MD Primary Care Provider: OTTONIEL Rowe Diagnoses at Discharge Discharge Diagnosis (1) NSTEMI (non-ST elevated myocardial infarction): Status: Acute (2) Hypertension: Status: Acute (3) Hyperlipemia: Status: Acute Qualifiers: Hyperlipidemia type: mixed hyperlipidemia Qualified Code(s): E78.2 - Mixed hyperlipidemia Reason for Visit Reason for Visit: Chest Pain Brief History: Christine Alvarez is a 82 year old female with past medical history of hypertension went to [facility] with chief complaint of bilateral jaw pain started today radiating down the neck, she denied any chest pain, palpitation, diaphoresis, dizziness, shortness of breath, cough, fever chills nausea vomiting. Upon arrival in the ER she was worked up for above-mentioned complaint. When I evaluated the patient here, she was not complaining of any neck pain, or jaw pain, at baseline she is very active person , has denied any chest pain or shortness of breath with exertion.She has smoked very briefly for 2 to 3 years, quit 5 years back. Pertinent imaging studies: EKG:SINUS BRADYCARDIA WITH SINUS ARRHYTHMIA POSSIBLE LEFT ATRIAL ENLARGEMENT. Pertinent labs: WBC 7.7, H&H:13/42 , plt : 231 , serum sodium 137 serum potassium 3.9, BUN serum creatinine 30/1.5 Troponin trend:17-52 - Patient was started on heparin drip in the ER, she also received aspirin.Morphine for pain. Hospital Course Hospital Course Patient was admitted for chest pain. Treated for NSTEMI. Cardiac angiogram was completed and she received 1 drug-eluting stent to the RCA. Patient was kept overnight for monitoring and discharged the next day in stable condition on aspirin statin Plavix metoprolol and sublingual nitro. She will follow-up with her primary care doctor and cardiology as advised. Physical Exam Narrative: General: Alert oriented x3, patient seen laying in bed appearing comfortable at this time HEENT: Normocephalic, atraumatic, EOMI, on room air. Cardio: Regular rate rhythm, normal S1-S2, no murmurs Respiratory: Good bilateral air entry, no wheezes no rhonchi appreciated, clear to auscultation bilaterally GI: Abdomen soft, nontender, nondistended, bowel sounds + Behavior: Appropriate and cooperative Extremities: No lower extremity edema., no cyanosis ? Urinary Catheter Management: Ortiz Latex Free: Cath Placed During This Visit: yes, but has since been removed by the nurse Reason for Continuing Indwelling Catheter: Acute Urinary Retention or Obstruction Urinary Catheter Date of Insertion: 03/04/22 Urinary Catheter Time of Insertion: 13:00 Date Urinary Catheter Removed: 03/05/22 Time Urinary Catheter Discontinued: 06:14 Discharge Data Studies Completed and Pending Completed Studies During Hospitalization Category Date Time Status CV. echo complete* [id number] Routine Ultrasound 03/03/22 05:04 Completed Pending at discharge Category Date Time Status NURSE PRACTITIONER HOME ASSESSMENTS request for service Routine Exams 03/04/22 06:00 Taken Complete Blood Count w/Auto AM LABS Lab 03/06/22 04:00 Ordered Comprehensive Metabolic Panel AM LABS Lab 03/06/22 04:00 Ordered Laboratory Results WBC 10.1 10^3/uL (4.0-10.0) H 03/05/22 03:56 RBC 3.36 10^6/uL (4.1-5.3) L 03/05/22 03:56 Hgb 10.3 g/dL (11.5-15.3) L 03/05/22 03:56 Hct 30.3 % (37.0-47.0) L 03/05/22 03:56 MCV 90.2 fl (81-99) 03/05/22 03:56 MCH 30.7 pg (28.0-34.0) 03/05/22 03:56 MCHC 34.0 g/dL (30.0-36.0) 03/05/22 03:56 RDW 14.2 % (12.1-15.1) 03/05/22 03:56 Plt Count 181 10^3/cmm (130-400) 03/05/22 03:56 MPV 11.1 fL (7.4-10.4) H 03/05/22 03:56 Neut % (Auto) 76.0 % 03/05/22 03:56 Lymph % (Auto) 15.7 % 03/05/22 03:56 [place] % (Auto) 7.4 % 03/05/22 03:56 Eos % (Auto) 0.1 % 03/05/22 03:56 Baso % (Auto) 0.4 % 03/05/22 03:56 Neut # (Auto) 7.65 10^3/uL (1.8-7.7) 03/05/22 03:56 Lymph # (Auto) 1.6 10^3/uL (0.8-4.8) 03/05/22 03:56 [place] # (Auto) 0.7 10^3/uL (0.2-0.9) 03/05/22 03:56 Eos # (Auto) 0.0 10^3/uL (0.0-0.8) 03/05/22 03:56 Baso # (Auto) 0.0 10^3/uL (0.0-0.1) 03/05/22 03:56 Nucleated RBC % (auto) 0 % 03/05/22 03:56 Nucleated RBCs # 0.0 /100WBC 03/05/22 03:56 APTT 49.3 SECONDS (23.9-36.7) H D 03/04/22 15:17 Sodium 141 mmol/L (136-145) 03/05/22 03:56 Potassium 3.5 mmol/L (3.5-5.1) 03/05/22 03:56 Chloride 105 mmol/L (98-107) 03/05/22 03:56 Carbon Dioxide 27 mmol/L (22-29) 03/05/22 03:56 Anion Gap 12.5 (5-19) 03/05/22 03:56 BUN 25 mg/dL (8-23) H 03/05/22 03:56 Creatinine 1.2 mg/dL (0.5-0.9) H 03/05/22 03:56 GFR Calculation Not Reportable 03/05/22 03:56 Glucose 87 mg/dL (65-115) 03/05/22 03:56 Estimat Average Glucose 151 03/04/22 03:31 Hemoglobin A1c 6.9 % (4.0-6.0) H 03/04/22 03:31 Calculated Osmolality 296 mOsm/kg (285-295) H 03/05/22 03:56 Calcium 8.3 mg/dL (8.5-10.5) L 03/05/22 03:56 Total Bilirubin 0.2 mg/dL (0.15-1.2) 03/05/22 03:56 AST 19 U/L (0-32) 03/05/22 03:56 ALT 10 U/L (0-33) 03/05/22 03:56 Alkaline Phosphatase 58 IU/L (35-105) 03/05/22 03:56 Troponin T Gen 5 ng/L 574 ng/L (0-10) H* 03/03/22 08:17 Total Protein 5.4 g/dL (6.6-8.7) L 03/05/22 03:56 Albumin 2.9 g/dL (3.5-5.2) L 03/05/22 03:56 Globulin 2.5 g/dL (1.3-4.6) 03/05/22 03:56 Triglycerides 103 mg/dL (0-150) 03/04/22 03:31 Cholesterol 167 mg/dL (0-200) 03/04/22 03:31 LDL Cholesterol, Calc 106 mg/dL (50-129) 03/04/22 03:31 HDL Cholesterol 40 mg/dL (60-100) L 03/04/22 03:31 LDL/HDL Ratio 2.65 RATIO (0.00-3.22) 03/04/22 03:31 Cholesterol/HDL Ratio 4.18 mg/dL (0.0-4.40) 03/04/22 03:31 TSH 1.93 uIU/mL (0.27-4.20) 03/04/22 03:31 Vitals Last Vital Signs Temp 98.0 F 03/05/22 08:00 Pulse 84 03/05/22 10:35 Resp 24 H 03/05/22 10:35 BP 147/96 03/05/22 10:35 Pulse Ox 94 03/05/22 10:35 Discharge Plan Discharge Patient Disposition: Home Condition: Stable Prescriptions: New atorvastatin 40 mg Tablet 40 mg PO BEDTIME 30 Days Qty: 30 0RF clopidogrel 75 mg Tablet 75 mg PO DAILY 30 Days Qty: 30 0RF aspirin 81 mg Tablet,Delayed Release (Dr/Ec) 81 mg PO DAILY 30 Days Qty: 30 0RF pantoprazole 40 mg Tablet,Delayed Release (Dr/Ec) 40 mg PO DAILY 30 Days Qty: 30 0RF lisinopril 20 mg tablet 10 mg PO DAILY 30 Days Qty: 30 0RF metoprolol succinate 25 mg tablet extended release 24 hr 25 mg PO DAILY 30 Days Qty: 30 0RF nitroglycerin 0.4 mg Tablet, Sublingual 0.4 mg sublingual Q5M PRN (Reason: Chest Pain) 30 Days Qty: 10 0RF Discontinued triamterene-hydrochlorothiazid 37.5-25 mg capsule 1 cap PO DAILY 0RF Rx Instructions: Take 1 capsule by mouth once daily for 90 days Discharge Orders: Discharge Order (Routine); Ordered 03/05/22 Ordered By: Matilde Herr Other Ambulatory Orders: Basic Metabolic Panel (Routine) Timeframe: 1 Week Facility: [facility] - Location: Lab - Main Lab Ordered By: Matilde Herr Referrals: Kandi Marquez FNP [Nurse Practitioner] - 03/18/22 1:15 pm Moi Fitzgerald FNP [Nurse Practitioner] - 03/10/22 10:00 am Anastasiya Brennan MD [Physician] - 04/16/22 10:15 am Discharge Diet: Cardiac Discharge Activity: Increase activity as tolerated Patient Instructions: Metoprolol (By mouth), Lisinopril (By mouth), Aspirin (By mouth), Atorvastatin (By mouth), Clopidogrel (By mouth), Pantoprazole (By mouth), Heart Attack (DC), Chest Pain (DC), Coronary Angioplasty (DC), Chest Pain Stoplight, Opioid Safety, Post Angiogram Home Care Instructions Activity Restrictions/Additional Instructions: PLEASE RETURN TO ER IF YOU HAVE ANY MORE CHEST PAIN, SHORTNESS OF BREATH, ABDOMINAL PAIN. PLEASE CHECK YOUR BLOOD PRESSURE AT HOME TWICE A DAY AND KEEP A BLOOD PRESSURE DIARY TO TAKE TO YOUR PRIMARY CARE DOCTOR. PLEASE FOLLOW UP WITH YOUR PRIMARY CARE AND CARDIOLOGY AFTER DISCHARGE DIRECTED. Discharge Attestations Time Spent in Discharge Care*: less than 30 min Quality Metrics Clinical Quality Measures [ Acute Myocardial Infaction { Clinical Trial Participant: No; Contraindication to aspirin: None; Aspirin prescribed; Contraindication to statin: None; Statin prescribed; Contraindication to PCI: None; PCI performed; Contraindication to Fibrinolytics: None; fibrinolytics given}. No reported AMI, CVA or VTE this stay] Coding Level of Care Code Acute Chg FW DC note Diagnoses NSTEMI (non-ST elevated myocardial infarction) I21.4 Hypertension I10 Hyperlipemia E78.2 Hyperlipidemia type: mixed hyperlipidemia
== END 2022-03-05 13:00 | disposition home or self-care (01) | DRG 247 ==
PROVIDERS: Internal Medicine; Internal Medicine Cardiovascular Disease; Admitting Provider Internal Medicine; PCP Nurse Practitioner; Visit Provider Internal Medicine
PROC: 027034Z Dilation of Coronary Artery, One Artery with Drug-eluting Intraluminal Device, Percutaneous Approach (ICD-10-PCS; 2022-03-04 06:00)
DX: I21.4 Non-ST elevation (NSTEMI) myocardial infarction (principal); N17.9 Acute kidney failure, unspecified; I10 Essential (primary) hypertension; E78.2 Mixed hyperlipidemia; Z87.891 Personal history of nicotine dependence; I25.10 Atherosclerotic heart disease of native coronary artery without angina pectoris; R53.83 Other fatigue; R73.9 Hyperglycemia, unspecified; D64.9 Anemia, unspecified
CPT/HCPCS: 36415; 51702; 80053; 80061; 83036; 84443; 84484; 85025; 85347; 85730; 93005; 93306; 93454; 96360; 96361; 96372; 99152; 99153; C1725; C1769; C1874; C1887; C1894; C9600; J1200; J1644; J1650; J1720; J2250; J2270; J3010; J3490; J7030; Q9967

== ENCOUNTER → 2022-03-18 12:57 | Outpatient (BNVA) | payer MEDICARE, OTHER, SELFPAY | PROVIDERS: PCP Nurse Practitioner Family; Visit Provider Nurse Practitioner Family | DX: I25.10 Atherosclerotic heart disease of native coronary artery without angina pectoris (principal); I10 Essential (primary) hypertension; I25.2 Old myocardial infarction | CPT/HCPCS: 36415; 80048; 99214 ==

== ENCOUNTER → 2022-04-16 10:04 | Outpatient (BNVA) | payer MEDICARE, OTHER, SELFPAY | PROVIDERS: PCP Nurse Practitioner Family; Visit Provider Internal Medicine Cardiovascular Disease | DX: I25.10 Atherosclerotic heart disease of native coronary artery without angina pectoris (principal); E78.2 Mixed hyperlipidemia; I10 Essential (primary) hypertension; Z95.5 Presence of coronary angioplasty implant and graft | CPT/HCPCS: 99213 ==

== ENCOUNTER 2022-06-21 22:36 | Emergency (ER) | payer MEDICARE, OTHER, SELFPAY ==
[2022-06-21 22:40] VITALS: BP 201/137; PULSE 71; RESP 18; TEMP 36.5; O2SAT 98; BMI 28.1
--- NOTE | 2022-06-21 22:51 | ECG_ITS ---
[facility] Test Date: 2022-06-21 Pat Name: Christine Alvarez Department: Room: Gender: Female Legal Aid: : 1940 Requested By: Terrence Tiwari Order Number: [id number] MD: Valente Robb M.D. Measurements Intervals [place] Rate: 69 P: 24 WV: 166 QRS: -38 QRSD: 82 T: 44 QT: 377 QTc: 405 Interpretive Statements SINUS RHYTHM POSSIBLE LEFT ATRIAL ENLARGEMENT [-0.1mV P-WAVE IN V1/V2] LEFT AXIS DEVIATION [QRS AXIS < -30] POSSIBLE ANTERIOR MYOCARDIAL INFARCTION , OF INDETERMINATE AGE [30 ms Q WAVE IN V3/V4, OR R < 0.2 mV IN V4] Compared to ECG 03/03/2022 05:40:02 Myocardial infarct finding now present Sinus bradycardia no longer present Sinus arrhythmia no longer present Incomplete right bundle-branch block no longer present Electronically Signed On 06-23-2022 8:29:44 CDT by Valente Robb M.D. [email or web address]
--- NOTE | 2022-06-21 23:08 | ED_ITS ---
HPI - Headache General: Chief Complaint: Headache Stated Complaint: Headachee\Neck Pain Time Seen by Provider: 06/21/22 23:08 History of Present Illness: Ms. Alvarado is an 82-year-old lady with recent diagnosis of hypertension, hyperlipidemia, CAD with history of PCI presenting to the ER for headache and high blood pressure. Symptoms began at approximately noon and have subsequently worsened. Primarily aching in the back of her head and neck with radiation of the forehead. Denies associated neurologic symptoms. No chest pain but does have generalized fatigue. Intensity symptoms is moderate. Course has persisted. No other specific changes in health, exacerbating, or alleviating factors identified. Onset (ago): hour(s) Onset description: suddenly Severity: moderate Quality & Timing: aching Exacerbating factors: none Relieving factors: nothing Associated symptoms: Reports malaise Review of Systems General: Reports: 10 or more systems reviewed and unremarkable except in HPI and below Const: Reports: malaise PFSH ED PFSH: Medical History Elevated hemoglobin A1c Fatigue Hyperlipemia Hypertension Medicare annual wellness visit, subsequent NSTEMI (non-ST elevated myocardial infarction) Vitamin D deficiency Surgical History Status post appendectomy Status post hysterectomy Stented coronary artery Social History Smoking and tobacco status: never smoked Alcohol intake: never Physical Exam Const: COMMON NORMALS: patient oriented x3 and alert GENERAL APPEARANCE: cooperative and well developed HENMT: COMMON NORMALS: normocephalic and atraumatic HEAD & SCALP: normocephalic and atraumatic THROAT: posterior oropharynx normal Eye: COMMON NORMALS: Equal, round and reactive pupils present, EOMs intact bilaterally and conjunctivae normal CONJUNCTIVA: Yes conjunctivae normal SCLERA: sclerae normal PUPIL: Yes Equal, round and reactive pupils present Neck/C-Spine: COMMON NORMALS: supple GENERAL: Yes trachea midline Resp: COMMON NORMALS: normal respiratory effort and clear to auscultation bilaterally EFFORT & INSPECTION: Yes able to speak in complete sentences AUSCULTATION: clear to auscultation bilaterally Cardio: COMMON NORMALS: regular rate and regular rhythm RATE: regular rate RHYTHM: regular rhythm GI: COMMON NORMALS: Soft to palpation PALPATION: Yes Soft to palpation and No Tenderness to palpation present (GI) Extremity: GENERAL: Yes normal exam except as noted and No edema Neuro: COMMON NORMALS: patient oriented x3, CN's II-XII intact bilaterally, moves all extremities, no focal motor deficits and no sensory deficits noted SENSORIUM/ORIENTATION: Yes alert and No Orientation impaired Psych: COMMON NORMALS: mental status grossly normal and Normal thought process present THOUGHT PROCESS: Normal thought process present Course Vital Signs: Vital signs: Vital Signs Temperature 98.1 F 06/22/22 03:21 Pulse Rate 64 06/22/22 03:21 Respiratory Rate 16 06/22/22 03:21 Blood Pressure 149/87 06/22/22 03:21 Pulse Oximetry 98 06/22/22 03:21 Oxygen Delivery Me thod 06/22/22 02:55 MDM - Headache Medical Decision Making 82-year-old lady presenting with headache. No focal neurologic abnormalities identified on exam. EKG showing sinus rhythm, no STEMI. Laboratory studies negative for leukocytosis, metabolic panel without significant derangement. Liver panel with transaminitis of uncertain etiology. Delta troponin is negative. No UTI. CT imaging negative for acute pathology to explain symptoms, thyroid nodule does not meet dimensional recommendations for further outpatient imaging. Patient improved with symptom treatment with near complete resolution of headache. I did discuss possible additional evaluation of the patient's transaminitis which she is comfortable getting in the outpatient setting at this time. This is reasonable given that the patient has had no biliary colic symptoms or other abdominal symptoms. Strict follow-up plan and return precautions discussed. Patient satisfactory for outpatient management and comfortable with plan. Medical Records I reviewed the patient's medical records. Lab Data I reviewed the patient's lab results. : 06/21/22 23:15 06/22/22 00:[address] 06/21/22 23:08 IMPRESSION: No acute intracranial abnormality. Cervical Spine CT 06/22/22 01:02 IMPRESSION: 1. No definite acute fracture or subluxation by CT. 2. Other findings discussed above. COMMENTS: Consistent with the [employer]'s Incidental Findings Committee white paper (J Am Juan Radiol 2015): In patients aged 35 years and older with an incidental thyroid nodule equal to or greater than 1.[address], MRI or extrathyroidal US, further evaluation with dedicated thyroid US is recommended for patients with normal life expectancy and without comorbidities. For smaller nodules without suspicious features, no further evaluation or follow up is recommended. Laboratory Results WBC 7.1 10^3/uL (4.0-10.0) 06/21/22 23:15 RBC 4.57 10^6/uL (4.1-5.3) 06/21/22 23:15 Hgb 13.9 g/dL (11.5-15.3) 06/21/22 23:15 Hct 43.5 % (37.0-47.0) 06/21/22 23:15 MCV 95.2 fl (81-99) 06/21/22 23:15 MCH 30.4 pg (28.0-34.0) 06/21/22 23:15 MCHC 32.0 g/dL (30.0-36.0) 06/21/22 23:15 RDW 14.5 % (12.1-15.1) 06/21/22 23:15 Plt Count 219 10^3/cmm (130-400) 06/21/22 23:15 MPV 11.0 fL (7.4-10.4) H 06/21/22 23:15 Neut % (Auto) 63.2 % 06/21/22 23:15 Lymph % (Auto) 18.4 % 06/21/22 23:15 [place] % (Auto) 7.5 % 06/21/22 23:15 Eos % (Auto) 9.5 % 06/21/22 23:15 Baso % (Auto) 1.1 % 06/21/22 23:15 Neut # (Auto) 4.45 10^3/uL (1.8-7.7) 06/21/22 23:15 Lymph # (Auto) 1.3 10^3/uL (0.8-4.8) 06/21/22 23:15 [place] # (Auto) 0.5 10^3/uL (0.2-0.9) 06/21/22 23:15 Eos # (Auto) 0.7 10^3/uL (0.0-0.8) 06/21/22 23:15 Baso # (Auto) 0.1 10^3/uL (0.0-0.1) 06/21/22 23:15 Nucleated RBC % (auto) 0 % 06/21/22 23:15 Nucleated RBCs # 0.0 /100WBC 06/21/22 23:15 Sodium 136 mmol/L (136-145) 06/22/22 00:04 Potassium 3.5 mmol/L (3.5-5.1) 06/22/22 00:04 Chloride 104 mmol/L (98-107) 06/22/22 00:04 Carbon Dioxide 23 mmol/L (22-29) 06/22/22 00:04 Anion Gap 12.5 (5-19) 06/22/22 00:04 BUN 25 mg/dL (8-23) H 06/22/22 00:04 Creatinine 1.1 mg/dL (0.5-0.9) H 06/22/22 00:04 GFR Calculation Not Reportable 06/22/22 00:04 Glucose 111 mg/dL (65-115) 06/22/22 00:04 Calculated Osmolality 287 mOsm/kg (285-295) 06/22/22 00:04 Calcium 7.8 mg/dL (8.5-10.5) L 06/22/22 00:04 Total Bilirubin 0.3 mg/dL (0.15-1.2) 06/22/22 00:04 AST 100 U/L (0-32) H 06/22/22 00:04 ALT 108 U/L (0-33) H 06/22/22 00:04 Alkaline Phosphatase 512 U/L (35-105) H 06/22/22 00:04 Troponin T Baseline 16 ng/L (0-10) H 06/21/22 23:15 Troponin T 120 Minute 10.66 ng/L (0-10) H 06/22/22 01:56 Delta Troponin T -5.34 ABS# (0-10) L 06/22/22 01:56 Total Protein 5.3 g/dL (6.6-8.7) L 06/22/22 00:04 Albumin 2.8 g/dL (3.5-5.2) L 06/22/22 00:04 Globulin 2.5 g/dL (1.3-4.6) 06/22/22 00:04 TSH 3.65 uIU/mL (0.27-4.20) 06/21/22 23:15 Urine Color Yellow (Yellow) 06/22/22 01:44 Urine Appearance Clear (CLEAR) 06/22/22 01:44 Urine pH 5 (5-7) 06/22/22 01:44 Ur Specific [facility] 1.015 (1.005-1.030) 06/22/22 01:44 Urine Protein Neg (Negative) 06/22/22 01:44 Urine Glucose (UA) Norm (Normal) 06/22/22 01:44 Urine Ketones Negative (Negative) 06/22/22 01:44 Urine Blood Neg (Negative) 06/22/22 01:44 Urine Nitrate Negative (Negative) 06/22/22 01:44 Urine Bilirubin Neg (Negative) 06/22/22 01:44 Urine Urobilinogen Norm mg/dL (Negative) 06/22/22 01:44 Ur Leukocyte Esterase Negative (Negative) 06/22/22 01:44 SARS-CoV-2 Ag (Rapid) negative (Negative) 06/22/22 01:50 Discharge Plan Discharge Patient Disposition: Home Clinical Impression: Hypertension, Headache Condition: Stable Prescriptions: Continued atorvastatin 40 mg tablet 40 mg PO BEDTIME Qty: 90 3RF clopidogrel 75 mg tablet 75 mg PO DAILY Qty: 90 3RF metoprolol succinate 25 mg tablet extended release 24 hr 25 mg PO DAILY aspirin [Adult Aspirin Regimen] 81 mg tablet,delayed release (DR/EC) 81 mg PO DAILY pantoprazole 40 mg tablet,delayed release (DR/EC) 40 mg PO DAILY Qty: 90 1RF Discontinued lisinopril 20 mg tablet 20 mg PO DAILY Qty: 90 3RF No Action buspirone 5 mg tablet 5 mg PO BID PRN (Reason: anxiety) Qty: 60 2RF lisinopril 20 mg tablet 20 mg PO DAILY Discharge Orders: Discharge ED (Routine); Ordered 06/22/22 Ordered By: Terrence Tiwari Referrals: Moi Fitzgerald FNP [Primary Care Provider] - Discharge Diet: Usual diet Discharge Activity: Increase activity as tolerated Patient Instructions: Acute Headache (ED), Hypertension (ED) Activity Restrictions/Additional Instructions: Thank you for visiting the emergency department. You were seen and evaluated for headache and high blood pressure. The exact cause of your symptoms is unclear though we are pleased that you had improvement with symptom treatment. I recommend increasing your lisinopril from 20 mg daily to 40 mg daily and then following up with cardiology and your primary care provider. Return to the emergency department for uncontrolled symptoms or anything else that you are concerned about and feel needs emergency department evaluation. Coding Level of Care Code ED Loan Coordinator for Leesa Goodrich
--- NOTE | 2022-06-21 23:08 | CTR_ITS ---
PROCEDURE INFORMATION: Exam: CT Head Without Contrast Exam date and time: 06/21/2022 11:18 PM Age: 82 years old Clinical indication: Pain; Headache; Patient HX: C/O MORRIS with nausea and hypertension. ; Additional info: Headache, severe TECHNIQUE: Imaging protocol: Computed tomography of the head without contrast. Radiation optimization: All CT scans at this facility use at least one of these dose optimization techniques: automated exposure control; mA and/or kV adjustment per patient size (includes targeted exams where dose is matched to clinical indication); or iterative reconstruction. COMPARISON: No relevant prior studies available. RADIATION DOSE METRICS: Total DLP (mGy-cm): 1028.58 FINDINGS: Brain: Normal. No hemorrhage. Unremarkable white matter. No mass effect. Cerebral ventricles: No ventriculomegaly. Paranasal sinuses: Visualized sinuses are unremarkable. No fluid levels. Mastoid air cells: Visualized mastoid air cells are well aerated. Bones/joints: Unremarkable. No acute fracture. Soft tissues: Unremarkable. CT/CT head wo con* [id number] IMPRESSION: No acute intracranial abnormality.
--- NOTE | 2022-06-21 23:18 | PC.NURSE ---
patient transported to CT via stretcher per transplant nurse practitioner with no dfificutlies.
[2022-06-21 23:20] LABS: Basophils # 0.1 10^3/uL (0.0-0.1); Basophils % 1.1 %; Eosinophils # 0.7 10^3/uL (0.0-0.8); Eosinophils % 9.5 %; Hematocrit 43.5 % (37.0-47.0); Hemoglobin 13.9 g/dL (11.5-15.3); Lymphocytes # 1.3 10^3/uL (0.8-4.8); Lymphocytes % 18.4 %; Mean Corpuscular Hemoglobin 30.4 pg (28.0-34.0); Mean Corpuscular Volume 95.2 fl (81-99); Monocytes # 0.5 10^3/uL (0.2-0.9); Monocytes % 7.5 %; Neutrophils # 4.45 10^3/uL (1.8-7.7); Neutrophils % 63.2 %; Nucleated Red Blood Cells % 0 %; Platelet Count 219 10^3/cmm (130-400); Red Blood Count 4.57 10^6/uL (4.1-5.3); Red Cell Distribution Width 14.5 % (12.1-15.1); White Blood Count 7.1 10^3/uL (4.0-10.0)
[2022-06-21 23:58] LABS: Troponin(5th) Baseline 16 ng/L (0-10)
[2022-06-22 00:34] LABS: Alanine Aminotransferase 108 U/L (0-33); Albumin Level 2.8 g/dL (3.5-5.2); Alkaline Phosphatase 512 U/L (35-105); Anion Gap 12.5 (5-19); Aspartate Amino Transferase 100 U/L (0-32); Blood Urea Nitrogen 25 mg/dL (8-23); Calcium 7.8 mg/dL (8.5-10.5); Carbon Dioxide 23 mmol/L (22-29); Chloride 104 mmol/L (98-107); Globulin 2.5 g/dL (1.3-4.6); Glucose 111 mg/dL (65-115); Osmolality Calculated 287 mOsm/kg (285-295); Potassium 3.5 mmol/L (3.5-5.1); Sodium 136 mmol/L (136-145); Total Bilirubin 0.3 mg/dL (0.15-1.2); Total Protein 5.3 g/dL (6.6-8.7)
[2022-06-22 00:40] LABS: Thyroid Stimulating Hormone 3.65 uIU/mL (0.27-4.20)
[2022-06-22 00:46] VITALS: BP 166/108; PULSE 73; RESP 17; O2SAT 97
[2022-06-22] MEDS: ketorolac 30 mg/mL INJ 15 MG IVP (00:47)
[2022-06-22] MEDS: metoclopramide 5 mg/mL SDV 2 mL IVP (00:47)
[2022-06-22] MEDS: diphenhydrAMINE 50 mg/mL SDV 1mL 12.5 MG IVP (00:47)
[2022-06-22] MEDS: hyDRALAzine 20 mg/mL INJ 1 mL 10 MG IVP (00:47)
--- NOTE | 2022-06-22 01:02 | CTR_ITS ---
PROCEDURE INFORMATION: Exam: CT Cervical Spine Without Contrast Exam date and time: 06/22/2022 1:20 AM Age: 82 years old Clinical indication: Patient HX: C/O posterior neck pain. ; Additional info: Posterior neck pain, non traumatic TECHNIQUE: Imaging protocol: Computed tomography of the cervical spine without contrast. Radiation optimization: All CT scans at this facility use at least one of these dose optimization techniques: automated exposure control; mA and/or kV adjustment per patient size (includes targeted exams where dose is matched to clinical indication); or iterative reconstruction. COMPARISON: No relevant prior studies available. RADIATION DOSE METRICS: Total DLP (mGy-cm): 143.57 FINDINGS: Bones/joints: On axial CT images, no definite acute fracture is visible. Sagittal and coronal reconstructions show no acute fracture or subluxation. Mild to moderate degenerative disc changes and facet joint arthritis at several levels. No definite/significant disc herniation by CT, MRI could be more sensitive if clinically indicated. Lungs: No significant acute finding in the upper lungs. Thyroid: Possible 8 x 6 mm nodule in the left lower lobe of the thyroid gland. CT/CT cervical spin wo con* [id number] IMPRESSION: 1. No definite acute fracture or subluxation by CT. 2. Other findings discussed above. COMMENTS: Consistent with the [employer]'s Incidental Findings Committee white paper (J Am Juan Radiol 2015): In patients aged 35 years and older with an incidental thyroid nodule equal to or greater than 1.[address], MRI or extrathyroidal US, further evaluation with dedicated thyroid US is recommended for patients with normal life expectancy and without comorbidities. For smaller nodules without suspicious features, no further evaluation or follow up is recommended.
[2022-06-22 01:25] VITALS: BP 123/91; PULSE 64; RESP 17; O2SAT 97
[2022-06-22 01:53] LABS: Add Urine Microscopic? NO; Charge for UA Resulting for Rev
[2022-06-22 02:03] LABS: Urine Appearance Clear (CLEAR); Urine Color Yellow (Yellow)
[2022-06-22] MEDS: ondansetron 2 mg/ML SDV 2 mL 4 MG IVP (02:03)
[2022-06-22 02:04] LABS: Bilirubin Urine Neg (Negative); Blood Urine Neg (Negative); Glucose Urine UA Norm (Normal); Ketones Urine Negative (Negative); Leukocyte Esterase Urine Negative (Negative); Nitrate Urine Negative (Negative); Protein Urine Neg (Negative); Specific Gravity, Urine 1.015 (1.005-1.030); Urobilinogen Urine Norm (Negative); pH Urine 5 (5-7)
[2022-06-22 02:09] LABS: SARS Covid-2 Antigen negative (Negative)
[2022-06-22 02:15] VITALS: BP 129/84; PULSE 64; RESP 18; O2SAT 96
[2022-06-22 02:20] LABS: Troponin 5 2HR 10.66 ng/L (0-10)
[2022-06-22 02:21] LABS: Troponin 5 2HR Delta -5.34 ABS# (0-10)
[2022-06-22 02:55] VITALS: BP 148/92; PULSE 67; RESP 18; O2SAT 98
[2022-06-22 03:21] VITALS: BP 149/87; PULSE 64; RESP 16; TEMP 36.7; O2SAT 98
== END 2022-06-22 03:22 | disposition home or self-care (01) ==
PROVIDERS: Emergency Provider Emergency Medicine; PCP Nurse Practitioner Family
DX: R51.9 Headache, unspecified (principal); I10 Essential (primary) hypertension; Z79.02 Long term (current) use of antithrombotics/antiplatelets; Z79.82 Long term (current) use of aspirin; Z20.822 Contact with and (suspected) exposure to COVID-19; E78.5 Hyperlipidemia, unspecified; I25.2 Old myocardial infarction
CPT/HCPCS: 70450; 72125; 80053; 81003; 84443; 84484; 85025; 87426; 93005; 96374; 96375; 99285; J0360; J1200; J1885; J2405; J2765

== ENCOUNTER → 2022-06-29 09:45 | Outpatient (BNVA) | payer MEDICARE, OTHER, SELFPAY | PROVIDERS: PCP Nurse Practitioner Family; Visit Provider Nurse Practitioner Family | DX: I10 Essential (primary) hypertension (principal) | CPT/HCPCS: 99213; 99214 ==

== ENCOUNTER → 2022-09-14 10:00 | Outpatient (BNVA) | payer MEDICARE, OTHER, SELFPAY | PROVIDERS: PCP Nurse Practitioner Family; Visit Provider Nurse Practitioner | DX: M25.571 Pain in right ankle and joints of right foot (principal); M79.671 Pain in right foot | CPT/HCPCS: 73610; 73630 ==

== ENCOUNTER → 2022-09-17 10:21 | Outpatient (BNVA) | payer MEDICARE, OTHER, SELFPAY | PROVIDERS: PCP Nurse Practitioner Family; Visit Provider Podiatrist Foot & Ankle Surgery | DX: M67.88 Other specified disorders of synovium and tendon, other site (principal); M20.11 Hallux valgus (acquired), right foot; M25.871 Other specified joint disorders, right ankle and foot | CPT/HCPCS: 73630; 99204 ==

== ENCOUNTER → 2022-10-15 09:28 | Outpatient (BNVA) | payer MEDICARE, OTHER, SELFPAY | PROVIDERS: PCP Nurse Practitioner Family; Visit Provider Internal Medicine | DX: I25.10 Atherosclerotic heart disease of native coronary artery without angina pectoris (principal); E78.2 Mixed hyperlipidemia; I10 Essential (primary) hypertension; Z95.5 Presence of coronary angioplasty implant and graft; I25.2 Old myocardial infarction; M20.11 Hallux valgus (acquired), right foot; M25.871 Other specified joint disorders, right ankle and foot | CPT/HCPCS: 99213; 99214 ==

== ENCOUNTER 2022-12-15 06:42 | Inpatient (IN) | payer MEDICARE, OTHER, SELFPAY ==
[2022-12-15] VITALS (15 sets, daily range): BP systolic 103–148; BP diastolic 75–95; PULSE 77–106; RESP 16–20; TEMP 36.8–37; O2SAT 90–95
--- NOTE | 2022-12-15 06:44 | ED_ITS ---
HPI - General Adult General: Chief complaint: Syncope Stated complaint: sob, dizziness Time Seen by Provider: 12/15/22 06:43 History of Present Illness: Ms. lAvarez is an 82-year-old lady with history of hypertension, hyperlipidemia, CAD with history of stent presenting to the emergency department for syncope and generalized illness. She reports onset of symptoms gradually approximately 1 week ago. Initially she had cough and congestion as well as episodic dizziness. She was seen by primary care and initiated on medications however has continued to worsen. She notes productive cough and generalized malaise as well as diarrhea and nausea. She has not been able to sleep laying down secondary to her cough. This morning she had a syncopal episode and reports that this is the fifth time associated with profound dizziness. No other neurologic symptoms reported. Course of symptoms is worsened. Intensity is moderate to severe. No other specific changes in health, exacerbating, or alleviating factors identified. Onset (ago): day(s) Severity: moderate Relieving factors: none Exacerbating factors: movement and other Associated symptoms: Reports cough, dyspnea, malaise, nausea, short of breath and other Review of Systems General: Reports: 10 or more systems reviewed and unremarkable except in HPI and below Const: Reports: malaise Resp: Reports: dyspnea GI: Reports: nausea PFSH ED PFSH: Medical History Chronic kidney disease Coronary artery disease Elevated hemoglobin A1c Fatigue GERD (gastroesophageal reflux disease) Hyperlipemia Hypertension Medicare annual wellness visit, subsequent NSTEMI (non-ST elevated myocardial infarction) Syncope Vitamin D deficiency Surgical History Status post appendectomy Status post hysterectomy Stented coronary artery Family History Other CAD (coronary artery disease) Social History Smoking and tobacco status: former smoker Alcohol intake: never Physical Exam Const: COMMON NORMALS: patient oriented x3 and alert GENERAL APPEARANCE: cooperative and well developed HENMT: COMMON NORMALS: normocephalic and atraumatic HEAD & SCALP: normocephalic and atraumatic Eye: COMMON NORMALS: conjunctivae normal CONJUNCTIVA: Yes conjunctivae normal SCLERA: sclerae normal Neck/C-Spine: COMMON NORMALS: supple GENERAL: Yes trachea midline Resp: EFFORT & INSPECTION: Yes able to speak in complete sentences AUSCULTATION: rhonchi and wheezes Cardio: COMMON NORMALS: regular rhythm RATE: tachycardic RHYTHM: regular rhythm GI: COMMON NORMALS: Soft to palpation PALPATION: Yes Soft to palpation and No Tenderness to palpation present (GI) Extremity: GENERAL: Yes normal exam except as noted and No edema Neuro: COMMON NORMALS: patient oriented x3, CN's II-XII intact bilaterally, moves all extremities, no focal motor deficits and no sensory deficits noted SENSORIUM/ORIENTATION: Yes alert and No Orientation impaired Psych: COMMON NORMALS: mental status grossly normal and Normal thought process present THOUGHT PROCESS: Normal thought process present Course Vital Signs: Vital signs: Vital Signs Temperature 97.6 F 12/17/22 08:00 Pulse Rate 79 12/17/22 08:00 Respiratory Rate 18 12/17/22 08:00 Blood Pressure 146/87 12/17/22 08:00 Pulse Oximetry 93 12/17/22 08:00 Oxygen Delivery Me thod Room Air 12/17/22 08:00 Oxygen Flow Rate 2 12/16/22 20:00 MDM - General Adult Medical Decision Making 82-year-old lady presenting with generalized illness including dizziness and shortness of breath. Exam as above with no focal neurologic deficits. Patient does exhibit increased work of breathing with abnormal lung sounds. She is on supplemental oxygen. She is nontoxic. EKG demonstrates sinus rhythm with left deviation and nonspecific ST segment abnormalities, normal intervals. No STEMI. Labs with leukocytosis, normal hemoglobin, thrombocytopenia of uncertain etiology. Metabolic panel with mild dehydration including elevated creatinine. Mild elevation in AST is improved from prior. Negative range 2-hour delta troponin. BNP is elevated. TSH elevated with normal free T4 procalcitonin elevated. Hematuria without clear evidence of urinary tract infection. Viral panel is pending. Chest x-ray demonstrates mild abnormalities, no pneumothorax. CT without acute pathology to explain symptoms. Incidental findings noted and discussed with patient. During ED course patient treated with with antibiotics, IV fluids, RT treatment. She is still requiring supplemental oxygen though appears somewhat improved. Most likely etiology of patient's symptoms is pneumonia with new oxygen requirement. The results of ED evaluation were discussed with the patient including plan for admission due to requirement for level of care not available if discharged to prevent significant worsening/deterioration. Patient agreeable with plan. Discussed with hospitalist service who was agreeable to admit patient. Medical Records I reviewed the patient's medical records. Lab Data I reviewed the patient's lab results. 12/17/22 04:00 12/17/22 04:00 Radiology Impressions Chest X-Ray 12/15/22 07:18 IMPRESSION: Abnormal thoracic aorta as above. Lung changes of uncertain chronicity as above. Cervical Spine CT 12/15/22 07:39 IMPRESSION: 1. No acute cervical spine fracture. 2. Mild facet joint arthritis and foraminal narrowing as above. Head CT 12/15/22 07:39 IMPRESSION: 1. No acute intracranial hemorrhage or edema. 2. Mild atrophy and small vessel ischemic disease. Laboratory Results WBC 10.2 10^3/uL (4.0-10.0) H 12/16/22 06:17 RBC 4.46 10^6/uL (4.1-5.3) 12/16/22 06:17 Hgb 14.2 g/dL (11.5-15.3) 12/16/22 06:17 Hct 43.9 % (37.0-47.0) 12/16/22 06:17 MCV 98.4 fl (81-99) 12/16/22 06:17 MCH 31.8 pg (28.0-34.0) 12/16/22 06:17 MCHC 32.3 g/dL (30.0-36.0) 12/16/22 06:17 RDW 13.7 % (12.1-15.1) 12/16/22 06:17 Plt Count 112 10^3/cmm (130-400) L 12/16/22 06:17 MPV 11.3 fL (7.4-10.4) H 12/16/22 06:17 Neut % (Auto) 76.2 % 12/16/22 06:17 Lymph % (Auto) 14.4 % 12/16/22 06:17 [place] % (Auto) 7.2 % 12/16/22 06:17 Eos % (Auto) 1.1 % 12/16/22 06:17 Baso % (Auto) 0.5 % 12/16/22 06:17 Neut # (Auto) 7.78 10^3/uL (1.8-7.7) H 12/16/22 06:17 Lymph # (Auto) 1.5 10^3/uL (0.8-4.8) 12/16/22 06:17 [place] # (Auto) 0.7 10^3/uL (0.2-0.9) 12/16/22 06:17 Eos # (Auto) 0.1 10^3/uL (0.0-0.8) 12/16/22 06:17 Baso # (Auto) 0.1 10^3/uL (0.0-0.1) 12/16/22 06:17 Nucleated RBC % (auto) 0 % 12/16/22 06:17 Nucleated RBCs # 0.0 /100WBC 12/16/22 06:17 Sodium 136 mmol/L (136-145) 12/16/22 06:17 Potassium 3.2 mmol/L (3.5-5.1) L 12/16/22 06:17 Chloride 99 mmol/L (98-107) 12/16/22 06:17 Carbon Dioxide 25 mmol/L (22-29) 12/16/22 06:17 Anion Gap 15.2 (5-19) 12/16/22 06:17 BUN 16 mg/dL (8-23) 12/16/22 06:17 Creatinine 1.1 mg/dL (0.5-0.9) H 12/16/22 06:17 GFR Calculation Not Reportable 12/16/22 06:17 Glucose 93 mg/dL (65-115) 12/16/22 06:17 Calculated Osmolality 283 mOsm/kg (285-295) L 12/16/22 06:17 Lactic Acid 1.7 mmol/L (0.5-2.2) 12/15/22 07:42 Calcium 8.6 mg/dL (8.5-10.5) 12/16/22 06:17 Magnesium 1.6 mg/dL (1.7-2.3) L 12/16/22 06:17 Total Bilirubin 0.7 mg/dL (0.15-1.2) 12/16/22 06:17 AST 35 U/L (0-32) H 12/16/22 06:17 ALT 23 U/L (0-33) 12/16/22 06:17 Alkaline Phosphatase 87 U/L (35-105) 12/16/22 06:17 Troponin T Baseline 25 ng/L (0-10) H 12/15/22 07:42 Troponin T 120 Minute 22.48 ng/L (0-10) H 12/15/22 09:58 Delta Troponin T -2.52 ABS# (0-10) L 12/15/22 09:58 Troponin T Hi Sens 6Hr 21.40 ng/L (0-10) H 12/15/22 14:05 Troponin T Hi Sens 6Hr Delta -3.60 ng/L (0-12) L 12/15/22 14:05 C-Reactive Protein 88.5 mg/L (0.0-4.9) H 12/15/22 07:42 NT-Pro-B Natriuret Pep 1032 pg/mL (0-450) H 12/15/22 07:42 Total Protein 6.2 g/dL (6.6-8.7) L 12/16/22 06:17 Albumin 3.2 g/dL (3.5-5.2) L 12/16/22 06:17 Globulin 3.0 g/dL (1.3-4.6) 12/16/22 06:17 Procalcitonin 0.65 ng/mL (0-0.5) H 12/15/22 07:42 TSH 4.71 uIU/mL (0.27-4.20) H 12/15/22 07:42 Free T4 1.65 ng/dL (0.82-1.77) 12/15/22 07:42 Urine Color Dark yellow (Yellow) 12/15/22 08:04 Urine Appearance Clear (CLEAR) 12/15/22 08:04 Urine pH 5 (5-7) 12/15/22 08:04 Ur Specific [place] 1.025 (1.005-1.030) 12/15/22 08:04 Urine Protein 1+ (Negative) H 12/15/22 08:04 Urine Glucose (UA) Norm (Normal) 12/15/22 08:04 Urine Ketones 1+ (Negative) H 12/15/22 08:04 Urine Blood 2+ (Negative) H 12/15/22 08:04 Urine Nitrate Negative (Negative) 12/15/22 08:04 Urine Bilirubin Neg (Negative) 12/15/22 08:04 Urine Urobilinogen 1 mg/dL (Negative) H 12/15/22 08:04 Ur Leukocyte Esterase Negative (Negative) 12/15/22 08:04 Urine RBC 5-10 /hpf (0-2) H 12/15/22 08:04 Urine WBC 0-4 /hpf (0-5) H 12/15/22 08:04 Ur Squamous Epith Cells 0-4 /hpf (0-5) H 12/15/22 08:04 Amorphous Sediment Not Reportable 12/15/22 08:04 Urine Bacteria Trace /hpf (NONE) 12/15/22 08:04 Urine Mucus Trace /hpf 12/15/22 08:04 Nasal Influ A H1 2009 PCR Not detected (NOT DETECT) 12/15/22 08:04 Adenovirus (PCR) Not detected (NOT DETECT) 12/15/22 08:04 C. pneumoniae DNA (PCR) Not detected (NOT DETECT) 12/15/22 08:04 Coronavirus 229E (PCR) Not detected (NOT DETECT) 12/15/22 08:04 Human Metapneumovir PCR Detected (NOT DETECT) A 12/15/22 08:04 Influenza A (H1) PCR Not detected (NOT DETECT) 12/15/22 08:04 Influenza A (H3) PCR Not detected (NOT DETECT) 12/15/22 08:04 Influenza Type A (PCR) Not detected (NOT DETECT) 12/15/22 08:04 Influenza Type B (PCR) Not detected (NOT DETECT) 12/15/22 08:04 M. pneumoniae (PCR) Not detected (NOT DETECT) 12/15/22 08:04 Parainfluenza 1 (PCR) Not detected (NOT DETECT) 12/15/22 08:04 Parainfluenza 2 (PCR) Not detected (NOT DETECT) 12/15/22 08:04 Parainfluenza 3 (PCR) Not detected (NOT DETECT) 12/15/22 08:04 Parainfluenza 4 (PCR) Not detected (NOT DETECT) 12/15/22 08:04 RSV Type A (PCR) Not detected (NOT DETECT) 12/15/22 08:04 RSV Type B (PCR) Not detected (NOT DETECT) 12/15/22 08:04 Entero/Rhino (PCR) Not detected (NOT DETECT) 12/15/22 08:04 SARS-CoV-2 (PCR) Not detected (NOT DETECT) 12/15/22 08:04 Discharge Plan Discharge Patient Disposition: Placed in Observation Admit Provider: Riley Jolly Clinical Impression: Pneumonia, Syncope, Hypoxia Discharge Diet: Cardiac Discharge Activity: Increase activity as tolerated Coding Level of Care Code ED Bank Operations Officer for Leesa Goodrich
--- NOTE | 2022-12-15 07:18 | XR_ITS ---
WS: [id number] XR chest 1V portable [id number] REASON FOR EXAM: sob FINDINGS: No previous examination for comparison. There is significant tortuosity and ectasia of the thoracic aorta possibly with aneurysmal dilatation . The heart size is normal. There is calcified granulomatous disease in both hemithoraces. There is significant elevation of the left hemidiaphragm with interposed colon. There are reticular interstitial lung opacities in both lower lung omer the chronicity of which are unknown. Most likely chronic. XR/XR chest 1V portable [id number] IMPRESSION: Abnormal thoracic aorta as above. Lung changes of uncertain chronicity as above.
--- NOTE | 2022-12-15 07:19 | ECG_ITS ---
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 Measurements Intervals [place] Rate: 95 P: 22 VA: 150 QRS: -60 QRSD: 93 T: 35 QT: 356 QTc: 448 Interpretive Statements SINUS RHYTHM POSSIBLE LEFT ATRIAL ENLARGEMENT [-0.1mV P-WAVE IN V1/V2] PATTERN CONSISTENT WITH PULMONARY DISEASE INCOMPLETE RIGHT BUNDLE BRANCH BLOCK [90+ ms QRS DURATION, TERMINAL R IN V1/V2, 40+ ms S IN I/aVL/V4/V5/V6] LEFT ANTERIOR FASCICULAR BLOCK [QRS AXIS <= -45, QR IN I, RS IN II] NONSPECIFIC ST & T-WAVE ABNORMALITY Compared to ECG 06/21/2022 22:51:29 Incomplete right bundle-branch block now present Left anterior fascicular block now present T-wave abnormality now present Left-axis deviation no longer present Myocardial infarct finding no longer present Electronically Signed On 12-15-2022 8:07:34 CDT by Valente Robb M.D. [id number]
--- NOTE | 2022-12-15 07:39 | CT_ITS ---
WS: [id number] CT HEAD NONCONTRAST HISTORY: syncope, dizzy TECHNIQUE: Contiguous axial imaging performed through the brain in 2.5 mm imaging. Bone and soft tiss ue windows. Sagittal and coronal reformats reviewed. All CT scans at [facility] use at least one of these dose optimization techniques: automated exposure control; mA and/or kV adjustment per pa tient size (includes targeted exams where dose is matched to clinical indication); or iterative recon struction. DLP: 1222.47 mGy.cm COMPARISON: 06/21/2022 No acute intracranial hemorrhage, midline shift or mass effect. Mild atrophy and small vessel ischemic disease. Ventricles: Normal size with no hydrocephalus. No inferior displacement of the cerebellar tonsils. Paranasal sinuses: Mild mucoperiosteal thickening in the ethmoid air cells. No air-fluid levels. Mastoid air cells: Well pneumatized. Calvarium and scalp: Skull is intact with no soft tissue edema or swelling. CT/CT head wo con* [id number] IMPRESSION: 1. No acute intracranial hemorrhage or edema. 2. Mild atrophy and small vessel ischemic disease.
--- NOTE | 2022-12-15 07:39 | CT_ITS ---
WS: [id number] CT CERVICAL SPINE HISTORY: fall, syncope TECHNIQUE: Contiguous 2.0 mm axial imaging performed through the entire cervical spine. Sagittal and coronal reformats also performed. All CT scans at [facility] use at least one of these dose o ptimization techniques: automated exposure control; mA and/or kV adjustment per patient size (include s targeted exams where dose is matched to clinical indication); or iterative reconstruction. DLP: 1222.47 mGy.cm COMPARISON: None available. Increase in cervical lordosis. Craniocervical junction normally aligned. Facet joints are normally al igned. Mild facet joint arthritis and joint space narrowing. Lateral masses of C1 and C2 are aligned. C2-C3: Normal. C3-C4: Small central disc protrusion. RIGHT facet arthritis. C4-C5: Mild RIGHT foraminal stenosis due to facet arthritis. C5-C6: Bilateral facet arthritis and mild foraminal narrowing. C6-C7: Mild bilateral facet arthritis and foraminal narrowing. C7-T1: Normal. Chronic emphysema. CT/CT cervical spin wo con* [id number] IMPRESSION: 1. No acute cervical spine fracture. 2. Mild facet joint arthritis and foraminal narrowing as above.
[2022-12-15] MEDS: ipratropium-albuterol 3 mL Neb INHALATION ×3 (07:49→20:39)
[2022-12-15 07:55] LABS: Basophils % 0.3 %; Hematocrit 46.2 % (37.0-47.0); Hemoglobin 15.3 g/dL (11.5-15.3); Mean Corpuscular HGB Conc 33.1 g/dL (30.0-36.0); Mean Corpuscular Hemoglobin 31.5 pg (28.0-34.0); Mean Corpuscular Volume 95.3 fl (81-99); Mean Platelet Volume 11.4 fL (7.4-10.4); Monocytes # 1.2 10^3/uL (0.2-0.9); Monocytes % 9.5 %; Neutrophils # 9.87 10^3/uL (1.8-7.7); Neutrophils % 81.6 %; Nucleated Red Blood Cells % 0 %; Platelet Count 118 10^3/cmm (130-400); Red Blood Count 4.85 10^6/uL (4.1-5.3); Red Cell Distribution Width 13.4 % (12.1-15.1); White Blood Count 12.1 10^3/uL (4.0-10.0)
[2022-12-15] MEDS: sodium chloride 0.9% 1,000 ML 999 ML IV (07:57)
[2022-12-15 08:12] LABS: Lactic Sepsis W/Reflex 1.7 mmol/L (0.5-2.2)
[2022-12-15 08:13] LABS: Troponin(5th) Baseline 25 ng/L (0-10)
[2022-12-15 08:20] LABS: NT Pro B Type Natriuretic Pept 1032 pg/mL (0-450); Procalcitonin 0.65 ng/mL (0-0.5); Thyroid Stimulating Hormone 4.71 uIU/mL (0.27-4.20)
[2022-12-15 08:32] LABS: Alanine Aminotransferase 28 U/L (0-33); Albumin Level 3.5 g/dL (3.5-5.2); Alkaline Phosphatase 98 U/L (35-105); Anion Gap 17.6 (5-19); Aspartate Amino Transferase 47 U/L (0-32); Blood Urea Nitrogen 19 mg/dL (8-23); C Reactive Protein 88.5 mg/L (0.0-4.9); Calcium 8.9 mg/dL (8.5-10.5); Carbon Dioxide 23 mmol/L (22-29); Chloride 95 mmol/L (98-107); Globulin 3.5 g/dL (1.3-4.6); Glucose 108 mg/dL (65-115); Osmolality Calculated 277 mOsm/kg (285-295); Potassium 3.6 mmol/L (3.5-5.1); Sodium 132 mmol/L (136-145); Total Bilirubin 0.9 mg/dL (0.15-1.2)
[2022-12-15] MEDS: cefTRIAXone 1,000 MG in sodium chloride 0.9% (plus) 50 ML 100 MG IV (08:49)
[2022-12-15 09:13] LABS: Free T4 Free Thyroxine 1.65 ng/dL (0.82-1.77)
[2022-12-15 09:14] LABS: Urine Color Dark Yellow (Yellow)
[2022-12-15 09:15] LABS: Add Urine Microscopic? YES; Bilirubin Urine Neg (Negative); Blood Urine 2+ (Negative); Glucose Urine UA Norm (Normal); Ketones Urine 1+ (Negative); Leukocyte Esterase Urine Negative (Negative); Nitrate Urine Negative (Negative); Protein Urine 1+ (Negative); Specific Gravity, Urine 1.025 (1.005-1.030); Urine Appearance Clear (CLEAR); Urobilinogen Urine 1 mg/dL (Negative); pH Urine 5 (5-7)
[2022-12-15 09:18] LABS: Add Urine Culture? No; Bacteria Urine TRACE /hpf; Mucus Urine TRACE /hpf; Squamous Epithelial Cell Urine 0-4 /hpf (0-5); WBC Urine 0-4 /hpf (0-5)
[2022-12-15] MEDS: doxycycline 100 MG in sodium chloride 0.9% (plus) 100 ML IV (09:20)
--- NOTE | 2022-12-15 09:22 | ECG_ITS ---
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 Measurements Intervals [place] Rate: 88 P: 30 [place]: 155 QRS: -60 QRSD: 93 T: 66 QT: 308 QTc: 373 Interpretive Statements SINUS RHYTHM PATTERN CONSISTENT WITH PULMONARY DISEASE INCOMPLETE RIGHT BUNDLE BRANCH BLOCK [90+ ms QRS DURATION, TERMINAL R IN V1/V2, 40+ ms S IN I/aVL/V4/V5/V6] LEFT ANTERIOR FASCICULAR BLOCK [QRS AXIS <= -45, QR IN I, RS IN II] NONSPECIFIC T-WAVE ABNORMALITY Compared to ECG 12/15/2022 07:42:34 No significant changes Electronically Signed On 12-16-2022 0:19:51 CDT by Molina Coffman M.D. [id number]
[2022-12-15 10:27] LABS: Troponin 5 2HR 22.48 ng/L (0-10)
[2022-12-15 10:29] LABS: Troponin 5 2HR Delta -2.52 ABS# (0-10)
[2022-12-15 10:32] LABS: Adenovirus Not Detected (NOT DETECT); Chlamydia Pneumoniae Not Detected (NOT DETECT); Coronavirus 229E,HKU1,NL63,OC4 Not Detected (NOT DETECT); Human Metapneumovirus Detected (NOT DETECT); Human Rhinovirus/Enterovirus Not Detected (NOT DETECT); Influenza A Not Detected (NOT DETECT); Influenza A H1 Not Detected (NOT DETECT); Influenza A H1-2009 Not Detected (NOT DETECT); Influenza A H3 Not Detected (NOT DETECT); Influenza B Not Detected (NOT DETECT); Mycoplasma Pneumoniae Not Detected (NOT DETECT); Parainfluenza Virus Type 1 Not Detected (NOT DETECT); Parainfluenza Virus Type 2 Not Detected (NOT DETECT); Parainfluenza Virus Type 3 Not Detected (NOT DETECT); Parainfluenza Virus Type 4 Not Detected (NOT DETECT); Respiratory Syncytial Virus A Not Detected (NOT DETECT); Respiratory Syncytial Virus B Not Detected (NOT DETECT); SARS-COV-2 Not Detected (NOT DETECT)
--- NOTE | 2022-12-15 11:28 | P.HP_ITS ---
Providers/Chief Complaint Admitting Physician: Riley Jolly MD Primary Care Provider: Mi Culp APN Chief Complaint: sob, dizziness History of Present Illness Christine Alvarez is a 82 year old female presenting to the hospital with cough and shortness of breath. Symptomatology has been going on approximately 7 to 10 days. She reports she feels little tight when she takes a deep breath. She has been wheezing and coughing quite a bit. She has not had any fevers. She denies any swelling. She denies any specific chest pain. She also reports she has had some intermittent falls over the last 2 months. 5 in total, with the last one being last night. She states when she gets up to ambulate, occasionally things will get dark. She will and faint, and wake up immediately. She does not have incontinence. Witness to events denies any shaking. She states an event can occasionally be aborted by sitting down. She denies any nausea. She reports she does not feel dizzy. She denies headache. In the emergency department she got some ceftriaxone, doxycycline, and a breathing treatment. Review of Systems General: Reports: 10 or more systems reviewed and unremarkable except in HPI and below Const: Reports: fatigue; Denies: fever(s) or chills Resp: Reports: dyspnea and productive cough; Denies: hemoptysis GI: Denies: abdominal pain, nausea, vomiting, hematochezia or melena Neuro: Denies: headache(s) Medications/Allergies Home Medications Medication Instructions Recorded Confirmed Last Taken Type atorvastatin 40 mg tablet 40 mg PO BEDTIME #90 tabs 03/18/22 12/15/22 12/14/22 Rx clopidogrel 75 mg tablet 75 mg PO DAILY #90 tabs 03/18/22 12/15/22 12/14/22 Rx aspirin 81 mg tablet,delayed 81 mg PO DAILY 04/16/22 12/15/22 12/14/22 History release (Adult Aspirin Regimen) lisinopril 20 mg tablet 20 mg PO DAILY 06/24/22 12/15/22 12/15/22 History buspirone 5 mg tablet 5 mg PO BID PRN anxiety #60 tabs 06/29/22 12/15/22 Unknown Rx metoprolol succinate 25 mg 25 mg PO DAILY #60 tabs 11/19/22 12/15/22 12/15/22 Rx tablet,extended release 24 hr azelastine 137 mcg (0.1 %) nasal 2 spray intranasal BID #30 mL 12/13/22 12/15/22 12/14/22 Rx spray aerosol loratadine 10 mg tablet 10 mg PO DAILY #30 tabs 12/13/22 12/15/22 12/14/22 Rx pantoprazole 40 mg tablet,delayed 40 mg PO DAILY PRN Acid Reflux 12/15/22 12/15/22 Unknown History release Allergies Allergy/AdvReac Type Severity Reaction Status Date / Time dexamethasone [From Decadron] Allergy ALGY-Hives Verified 12/15/22 09:10 iodine Allergy ALGY-Hives Verified 12/15/22 09:10 methylprednisolone Allergy ALGY-Hives Verified 12/15/22 09:10 PFSH Acute PFSH: Medical History (Updated 12/15/22 @ 14:03 by Riley Jolly MD) Chronic kidney disease Coronary artery disease Elevated hemoglobin A1c Fatigue GERD (gastroesophageal reflux disease) Hyperlipemia Hypertension Medicare annual wellness visit, subsequent NSTEMI (non-ST elevated myocardial infarction) Vitamin D deficiency Surgical History Status post appendectomy Status post hysterectomy Stented coronary artery Family History (Updated 12/15/22 @ 13:52 by Riley Jolly MD) Other CAD (coronary artery disease) Social History (Updated 12/15/22 @ 13:52 by Riley Jolly MD) Smoking and tobacco status: former smoker Alcohol intake: never Vitals/I&O/Wt Last Vital Signs Temp 98.6 F 12/15/22 07:08 Pulse 93 12/15/22 08:56 Resp 16 12/15/22 07:45 BP 121/75 12/15/22 10:11 Pulse Ox 94 12/15/22 10:11 O2 Del Method 12/15/22 10:11 O2 Flow Rate 2 12/15/22 10:11 12/14/22 12/15/22 12/15/22 22:59 06:59 14:59 Intake Total 1150 / 1150 Balance 1150 / 1150 Weight last 48 hrs Weight 74.389 kg Physical Exam Narrative: General exam is a white female, no distress Neck is supple no lymphadenopathy thyromegaly Cardiovascular regular rate and rhythm without murmur Lungs coarse breath sounds bilaterally. A few expiratory wheezes Abdomen is soft nontender positive bowel sounds. No obvious organomegaly exam was deferred Extremities no cyanosis clubbing or edema, cap refill brisk Skin no rash Neuro no obvious focal deficits. Data 12/15/22 07:42 12/15/22 07:42 Other Labs: Lactic acid is 1.7 LFTs normal with exception of AST of 47 Troponin is 25 with repeat of 22 CRP 88 BNP 1032 Albumin 3.5 Procalcitonin 0.65 TSH 4.71, normal free T4 Urinalysis with 5-10 red blood cells otherwise negative COVID PCR negative, positive for human metapneumovirus Head CT and cervical spine CT negative for any acute acute findings Chest x-ray which I reviewed demonstrates no infiltrate EKG which I reviewed demonstrates sinus rhythm, left axis deviation, left atrial enlargement, incomplete right bundle branch block. Previous echocardiogram February 2022 demonstrates EF which is normal, grade 1 diastolic dysfunction, mild pulmonary hypertension Micro: Microbiology 12/15/22 07:58 Blood Culture - Preliminary Blood SPECIMEN COLLECTED 12/15/22 07:56 Blood Culture - Preliminary Blood SPECIMEN COLLECTED A&P Assessment and plan (1) Pneumonia: Patient may have bacterial pneumonia, superimposed on viral illness. She is not improving after 1-1/2 weeks of illness. White blood cell count is elevated. Procalcitonin is elevated. Blood cultures been obtained Sputum culture Continue Rocephin Add Zithromax As she has hypoxic oxygen as needed Pulmonary toilet with DuoNeb every 6 hours, budesonide twice daily (2) Viral illness: Patient is positive for Rodriguez pneumonia virus. This viral illness may have played a role with initial illness. Continue supportive care (3) Acute kidney injury: Some evidence of acute kidney injury superimposed on chronic kidney disease Follow creatinine closely Avoid renal toxic medication At this point I am not inclined to hydrate with fluids. Instead, can drink to thirst and we will recheck creatinine tomorrow. (4) Syncope: Patient has had several episodes of syncope. She reports these are heralded by vision getting dark. She never has any seizure-like activity, or incontinence. Certainly this could represent arrhythmia, but with her ability to stop the episode with sitting down orthostatic hypotension may play a role. Check orthostatic blood pressures twice daily. Hold her lisinopril, monitor blood pressure. (5) Coronary artery disease: Continue Plavix, aspirin, statin, beta-yevgeniy (6) Elevated troponin: Consistent with Type 2 elevation. No further work up at this time. Plan Hypertension. Holding lisinopril currently secondary to syncopal events Multiple other medical problems as outlined in past medical history Full code currently Lovenox for DVT prophylaxis Attestations Medical Necessity Statement*: Secondary to minimal oxygen need, initially anticipate less than 2 midnight stay for evaluation and treatment. Diagnoses Pneumonia J18.9 Viral illness B34.9 Acute kidney injury N17.9 Syncope R55 Coronary artery disease I25.10 Elevated troponin R77.8 Time Spent (min) 49
--- NOTE | 2022-12-15 13:02 | ECG_ITS ---
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 Measurements Intervals [place] Rate: 81 P: 47 [place]: 151 QRS: -55 QRSD: 96 T: 70 QT: 315 QTc: 368 Interpretive Statements SINUS RHYTHM LEFT AXIS DEVIATION [QRS AXIS < -30] INCOMPLETE RIGHT BUNDLE BRANCH BLOCK [90+ ms QRS DURATION, TERMINAL R IN V1/V2, 40+ ms S IN I/aVL/V4/V5/V6] POSSIBLE ANTERIOR MYOCARDIAL INFARCTION , PROBABLY OLD [30 ms Q WAVE IN V3/V4, OR R < 0.2 mV IN V4] Compared to ECG 12/15/2022 09:22:12 Left-axis deviation now present Myocardial infarct finding now present Left anterior fascicular block no longer present T-wave abnormality no longer present Electronically Signed On 12-16-2022 0:22:09 CDT by Molina Coffman M.D. [id number]
[2022-12-15] MEDS: azithromycin 500 MG in sodium chloride 0.9% 250 ML 250 MG IV (14:34)
[2022-12-15] MEDS: enoxaparin 30 mg/0.3 mL Syringe SUBCUT (14:34)
[2022-12-15] MEDS: atorvastatin 40 mg Tablet PO (20:01)
[2022-12-15] MEDS: budesonide 0.5 mg/2 mL Neb INHALATION (20:39)
[2022-12-16] VITALS (18 sets, daily range): BP systolic 100–137; BP diastolic 68–87; PULSE 72–116; RESP 15–20; TEMP 36.4–37.1; O2SAT 87–98
[2022-12-16] MEDS: ipratropium-albuterol 3 mL Neb INHALATION ×4 (02:29→20:45)
[2022-12-16 06:36] LABS: Basophils # 0.1 10^3/uL (0.0-0.1); Basophils % 0.5 %; Eosinophils # 0.1 10^3/uL (0.0-0.8); Eosinophils % 1.1 %; Hematocrit 43.9 % (37.0-47.0); Hemoglobin 14.2 g/dL (11.5-15.3); Lymphocytes # 1.5 10^3/uL (0.8-4.8); Lymphocytes % 14.4 %; Mean Corpuscular HGB Conc 32.3 g/dL (30.0-36.0); Mean Corpuscular Hemoglobin 31.8 pg (28.0-34.0); Mean Corpuscular Volume 98.4 fl (81-99); Mean Platelet Volume 11.3 fL (7.4-10.4); Monocytes # 0.7 10^3/uL (0.2-0.9); Monocytes % 7.2 %; Neutrophils # 7.78 10^3/uL (1.8-7.7); Neutrophils % 76.2 %; Nucleated Red Blood Cells % 0 %; Platelet Count 112 10^3/cmm (130-400); Red Blood Count 4.46 10^6/uL (4.1-5.3); Red Cell Distribution Width 13.7 % (12.1-15.1); White Blood Count 10.2 10^3/uL (4.0-10.0)
[2022-12-16 06:52] LABS: Alanine Aminotransferase 23 U/L (0-33); Albumin Level 3.2 g/dL (3.5-5.2); Alkaline Phosphatase 87 U/L (35-105); Anion Gap 15.2 (5-19); Aspartate Amino Transferase 35 U/L (0-32); Blood Urea Nitrogen 16 mg/dL (8-23); Calcium 8.6 mg/dL (8.5-10.5); Carbon Dioxide 25 mmol/L (22-29); Chloride 99 mmol/L (98-107); Glucose 93 mg/dL (65-115); Magnesium 1.6 mg/dL (1.7-2.3); Osmolality Calculated 283 mOsm/kg (285-295); Potassium 3.2 mmol/L (3.5-5.1); Sodium 136 mmol/L (136-145); Total Bilirubin 0.7 mg/dL (0.15-1.2); Total Protein 6.2 g/dL (6.6-8.7)
[2022-12-16] MEDS: budesonide 0.5 mg/2 mL Neb INHALATION ×2 (07:31→20:45)
--- NOTE | 2022-12-16 09:13 | PM.PN ---
Subjective Subjective: Christine reports she feels better. She denies any feelings that she might faint. She again denies any dizziness. She states she is still coughing some. She believes her wheezing is less. She is amenable to trying some steroids. Attempts were made to wean her off oxygen this morning, which failed. Oxygen saturation went down to 85%, but with resumption of 2 L was adequate. Medications: Reviewed: Yes Vitals/I&O/Wt Last Vital Signs Temp 98.6 F 12/16/22 08:00 Pulse 107 H 12/16/22 08:00 Resp 15 12/16/22 08:00 BP 137/87 12/16/22 08:00 Pulse Ox 91 12/16/22 08:00 O2 Del Method 12/16/22 08:00 O2 Flow Rate 2 12/16/22 07:41 12/15/22 12/16/22 12/16/22 22:59 06:59 14:59 Intake Total 610 / 1760 120 / 1880 Balance 610 / 1760 120 / 1880 Weight last 48 hrs Weight 74.389 kg Physical Exam Narrative: General exam is a white female, no distress. Initial orthostatic blood pressure this morning did not demonstrate significant change in blood pressure, although heart rate went up some. Telemetry overnight demonstrated occasional PACs but no pauses or significant arrhythmias. Neck is supple no lymphadenopathy thyromegaly Cardiovascular regular rate and rhythm without murmur Lungs coarse breath sounds bilaterally. A few expiratory wheezes Abdomen is soft nontender positive bowel sounds. No obvious organomegaly Extremities no cyanosis clubbing or edema, cap refill brisk Data 12/16/22 06:17 12/16/22 06:17 Micro: Microbiology 12/15/22 07:56 Blood Culture - Preliminary Blood NEGATIVE TO DATE 12/15/22 07:58 Blood Culture - Preliminary Blood NEGATIVE TO DATE A&P Assessment and plan (1) Pneumonia: Patient may have bacterial pneumonia, superimposed on viral illness. She is not improving after 1-1/2 weeks of illness. Procalcitonin is elevated. White blood cell count has decreased slightly Blood cultures been obtained Sputum culture has been ordered Continue Rocephin Continue Zithromax Still requiring 2 L of oxygen, wean as tolerated Pulmonary toilet with DuoNeb every 6 hours, budesonide twice daily She still has some wheezing, is amenable to trying prednisone even though methylprednisolone listed as an allergy. Risks discussed. Start 40 mg daily. Check CBC tomorrow (2) Viral illness: Patient is positive for Rodriguez pneumonia virus. This viral illness may have played a role with initial illness. Continue supportive care See notations above (3) Acute kidney injury: Some evidence of acute kidney injury superimposed on chronic kidney disease Renal function improved and appears to be at baseline Avoid renal toxic medication (4) Syncope: Patient has had several episodes of syncope. She reports these are heralded by vision getting dark. She never has any seizure-like activity, or incontinence. Certainly this could represent arrhythmia, but with her ability to stop the episode with sitting down orthostatic hypotension may play a role. Systolic blood pressure did not vary significantly with orthostatics this morning but heart rate did increase. Continue to hold lisinopril. Giving her home dose of metoprolol. Monitor blood pressure. I reviewed all of her telemetry recorded overnight, which demonstrated occasional PACs but no significant arrhythmias. I reviewed her second and third EKGs, which demonstrated sinus rhythm, left axis deviation. Incomplete right bundle branch block was also noted. (5) Coronary artery disease: Continue Plavix, aspirin, statin, beta-yevgeniy (6) Elevated troponin: Consistent with Type 2 elevation. No further work up at this time. Plan Hypertension. Holding lisinopril currently secondary to syncopal events Hypomagnesemia. Supplemented and repeat magnesium level tomorrow Hypokalemia, supplement Multiple other medical problems as outlined in past medical history Full code currently Lovenox for DVT prophylaxis Attestations Medical Necessity Statement*: Needs continued hospitalization, secondary to pneumonia with requirement for oxygen. Diagnoses Pneumonia J18.9 Viral illness B34.9 Acute kidney injury N17.9 Syncope R55 Coronary artery disease I25.10 Elevated troponin R77.8 Time Spent (min) 28
[2022-12-16] MEDS: cefTRIAXone 1,000 MG in sodium chloride 0.9% (plus) 50 ML 100 MG IV (09:52)
[2022-12-16] MEDS: clopidogrel 75 mg Tablet PO (09:57)
[2022-12-16] MEDS: aspirin 81 mg EC Tablet PO (09:57)
[2022-12-16] MEDS: potassium chloride ER 20 mEq Tablet 40 MEQ PO ×2 (09:57→13:00)
[2022-12-16] MEDS: metoprolol succinate ER (24 HR) 25 mg Tablet PO (09:57)
[2022-12-16] MEDS: pantoprazole DR 40 mg Tablet PO (09:57)
[2022-12-16] MEDS: predniSONE 20 mg Tablet 40 MG PO (09:58)
[2022-12-16] MEDS: magnesium sulfate premix 2 GM/50 ML PIGGYBACK IV (10:22)
[2022-12-16] MEDS: enoxaparin 40 mg/0.4 mL Syringe SUBCUT (13:00)
[2022-12-16] MEDS: azithromycin 500 MG in sodium chloride 0.9% 250 ML 250 MG IV (13:00)
[2022-12-16] MEDS: atorvastatin 40 mg Tablet PO (20:07)
[2022-12-17 02:00] VITALS: O2SAT 93
[2022-12-17 03:47] VITALS: BP 127/76; PULSE 80; RESP 17; TEMP 36.5; O2SAT 91
[2022-12-17 04:24] LABS: Basophils % 0.1 %; Hematocrit 37.6 % (37.0-47.0); Hemoglobin 12.4 g/dL (11.5-15.3); Lymphocytes # 0.5 10^3/uL (0.8-4.8); Lymphocytes % 6.6 %; Mean Corpuscular Hemoglobin 31.4 pg (28.0-34.0); Mean Corpuscular Volume 95.2 fl (81-99); Mean Platelet Volume 11.5 fL (7.4-10.4); Monocytes # 0.4 10^3/uL (0.2-0.9); Monocytes % 5.5 %; Neutrophils # 6.35 10^3/uL (1.8-7.7); Neutrophils % 87.3 %; Nucleated Red Blood Cells % 0 %; Platelet Count 103 10^3/cmm (130-400); Red Blood Count 3.95 10^6/uL (4.1-5.3); Red Cell Distribution Width 13.5 % (12.1-15.1); White Blood Count 7.3 10^3/uL (4.0-10.0)
[2022-12-17 04:44] LABS: Anion Gap 12.3 (5-19); Blood Urea Nitrogen 17 mg/dL (8-23); Carbon Dioxide 23 mmol/L (22-29); Chloride 104 mmol/L (98-107); Glucose 129 mg/dL (65-115); Magnesium 2.3 mg/dL (1.7-2.3); Osmolality Calculated 283 mOsm/kg (285-295); Potassium 4.3 mmol/L (3.5-5.1); Sodium 135 mmol/L (136-145)
[2022-12-17 04:47] LABS: Creatinine Clr Calc Pharmacy 46.2794
[2022-12-17 08:00] VITALS: BP 146/87; PULSE 77; PULSE 79; RESP 18; TEMP 36.4; O2SAT 93
--- NOTE | 2022-12-17 08:01 | P.DS_ITS ---
Discharge Providers Date of Admission: 12/16/22 18:32 Date of Discharge: December 17, 2022 Attending Provider at Admission: Riley Jloly MD Attending Provider at Discharge: Riley Jolly MD Primary Care Provider: Mi Culp APN Diagnoses at Discharge Discharge Diagnosis (1) Pneumonia: Status: Acute (2) Viral illness: Status: Acute (3) Acute kidney injury: Status: Acute (4) Syncope: Status: Acute (5) Coronary artery disease: Status: Acute (6) Elevated troponin: Status: Acute Reason for Visit Reason for Visit: sob, dizziness Hospital Course Hospital Course Patient is an 82-year-old white female who presented with progressive cough for over a week, productive of sputum, associated with shortness of breath. She was found to be hypoxic, with elevated white blood cell count, elevated procalcitonin. She tested positive for Rodriguez pneumonia virus. She is also complained of 4 fainting episodes, usually heralded by vision getting black, prevented by sitting down. During her hospital course she was placed on IV antibiotics. Prednisone was added. She received some breathing treatments. Lisinopril was discontinued with the suspicion she may have orthostatic hypotension. There is certainly some blood pressure variance but she did not have any syncopal events, arrhythmias, or symptoms while in the hospital. She felt much better off the lisinopril and blood pressures were running approximately 120 systolic. By end of hospital stay she was no longer requiring oxygen that she required on admission. She was able to get up and ambulate. She had no symptoms of dizziness. It was thought she could discharge home to inish up a short course of prednisone, use albuterol as needed, finish up a short course of cefdinir, get her last dose of Zithromax p.o. prior to discharge, and follow-up with her primary care provider. I also asked for her to follow-up with cardiology regarding discontinuation of lisinopril, fainting episodes, for recheck of her blood pressure. Her and her were able to ask questions, and agreed with the plan. Blood cultures drawn at admission, were negative upon discharge. She had also had other imaging on admission including CT head and CT neck which demonstrated no fracture. Troponin was slightly elevated on admission but had no significant delta consistent with type II elevation. Physical Exam Narrative: General exam no distress Neck is supple Cardiovascular regular rate and rhythm without murmur Lungs clear Abdomen is soft, positive bowel sounds Extremities no cyanosis clubbing edema Discharge Data Studies Completed and Pending Completed Studies During Hospitalization Category Date Time Status CT cervical spin wo con* [id number] Stat Cat Scan 12/15/22 07:[address] head wo con* [id number] Stat Cat Scan 12/15/22 07:39 Completed XR chest 1V portable [id number] Stat Exams 12/15/22 07:18 Completed Pending at discharge Category Date Time Status Blood Culture Stat Lab 12/15/22 07:58 Results Sputum Culture and Gram Stain Routine Lab 12/15/22 14:04 Uncollected Radiology Impressions Chest X-Ray 12/15/22 07:18 IMPRESSION: Abnormal thoracic aorta as above. Lung changes of uncertain chronicity as above. Cervical Spine CT 12/15/22 07:39 IMPRESSION: 1. No acute cervical spine fracture. 2. Mild facet joint arthritis and foraminal narrowing as above. Head CT 12/15/22 07:39 IMPRESSION: 1. No acute intracranial hemorrhage or edema. 2. Mild atrophy and small vessel ischemic disease. Laboratory Results WBC 7.3 10^3/uL (4.0-10.0) 12/17/22 04:00 RBC 3.95 10^6/uL (4.1-5.3) L 12/17/22 04:00 Hgb 12.4 g/dL (11.5-15.3) 12/17/22 04:00 Hct 37.6 % (37.0-47.0) 12/17/22 04:00 MCV 95.2 fl (81-99) 12/17/22 04:00 MCH 31.4 pg (28.0-34.0) 12/17/22 04:00 MCHC 33.0 g/dL (30.0-36.0) 12/17/22 04:00 RDW 13.5 % (12.1-15.1) 12/17/22 04:00 Plt Count 103 10^3/cmm (130-400) L 12/17/22 04:00 MPV 11.5 fL (7.4-10.4) H 12/17/22 04:00 Neut % (Auto) 87.3 % 12/17/22 04:00 Lymph % (Auto) 6.6 % 12/17/22 04:00 [place] % (Auto) 5.5 % 12/17/22 04:00 Eos % (Auto) 0.0 % 12/17/22 04:00 Baso % (Auto) 0.1 % 12/17/22 04:00 Neut # (Auto) 6.35 10^3/uL (1.8-7.7) 12/17/22 04:00 Lymph # (Auto) 0.5 10^3/uL (0.8-4.8) L 12/17/22 04:00 [place] # (Auto) 0.4 10^3/uL (0.2-0.9) 12/17/22 04:00 Eos # (Auto) 0.0 10^3/uL (0.0-0.8) 12/17/22 04:00 Baso # (Auto) 0.0 10^3/uL (0.0-0.1) 12/17/22 04:00 Nucleated RBC % (auto) 0 % 12/17/22 04:00 Nucleated RBCs # 0.0 /100WBC 12/17/22 04:00 Sodium 135 mmol/L (136-145) L 12/17/22 04:00 Potassium 4.3 mmol/L (3.5-5.1) 12/17/22 04:00 Chloride 104 mmol/L (98-107) 12/17/22 04:00 Carbon Dioxide 23 mmol/L (22-29) 12/17/22 04:00 Anion Gap 12.3 (5-19) 12/17/22 04:00 BUN 17 mg/dL (8-23) 12/17/22 04:00 Creatinine 1.0 mg/dL (0.5-0.9) H 12/17/22 04:00 GFR Calculation Not Reportable 12/17/22 04:00 Glucose 129 mg/dL (65-115) H 12/17/22 04:00 Calculated Osmolality 283 mOsm/kg (285-295) L 12/17/22 04:00 Lactic Acid 1.7 mmol/L (0.5-2.2) 12/15/22 07:42 Calcium 9.0 mg/dL (8.5-10.5) 12/17/22 04:00 Magnesium 2.3 mg/dL (1.7-2.3) 12/17/22 04:00 Total Bilirubin 0.7 mg/dL (0.15-1.2) 12/16/22 06:17 AST 35 U/L (0-32) H 12/16/22 06:17 ALT 23 U/L (0-33) 12/16/22 06:17 Alkaline Phosphatase 87 U/L (35-105) 12/16/22 06:17 Troponin T Baseline 25 ng/L (0-10) H 12/15/22 07:42 Troponin T 120 Minute 22.48 ng/L (0-10) H 12/15/22 09:58 Delta Troponin T -2.52 ABS# (0-10) L 12/15/22 09:58 Troponin T Hi Sens 6Hr 21.40 ng/L (0-10) H 12/15/22 14:05 Troponin T Hi Sens 6Hr Delta -3.60 ng/L (0-12) L 12/15/22 14:05 C-Reactive Protein 88.5 mg/L (0.0-4.9) H 12/15/22 07:42 NT-Pro-B Natriuret Pep 1032 pg/mL (0-450) H 12/15/22 07:42 Total Protein 6.2 g/dL (6.6-8.7) L 12/16/22 06:17 Albumin 3.2 g/dL (3.5-5.2) L 12/16/22 06:17 Globulin 3.0 g/dL (1.3-4.6) 12/16/22 06:17 Procalcitonin 0.65 ng/mL (0-0.5) H 12/15/22 07:42 TSH 4.71 uIU/mL (0.27-4.20) H 12/15/22 07:42 Free T4 1.65 ng/dL (0.82-1.77) 12/15/22 07:42 Urine Color Dark yellow (Yellow) 12/15/22 08:04 Urine Appearance Clear (CLEAR) 12/15/22 08:04 Urine pH 5 (5-7) 12/15/22 08:04 Ur Specific [place] 1.025 (1.005-1.030) 12/15/22 08:04 Urine Protein 1+ (Negative) H 12/15/22 08:04 Urine Glucose (UA) Norm (Normal) 12/15/22 08:04 Urine Ketones 1+ (Negative) H 12/15/22 08:04 Urine Blood 2+ (Negative) H 12/15/22 08:04 Urine Nitrate Negative (Negative) 12/15/22 08:04 Urine Bilirubin Neg (Negative) 12/15/22 08:04 Urine Urobilinogen 1 mg/dL (Negative) H 12/15/22 08:04 Ur Leukocyte Esterase Negative (Negative) 12/15/22 08:04 Urine RBC 5-10 /hpf (0-2) H 12/15/22 08:04 Urine WBC 0-4 /hpf (0-5) H 12/15/22 08:04 Ur Squamous Epith Cells 0-4 /hpf (0-5) H 12/15/22 08:04 Amorphous Sediment Not Reportable 12/15/22 08:04 Urine Bacteria Trace /hpf (NONE) 12/15/22 08:04 Urine Mucus Trace /hpf 12/15/22 08:04 Nasal Influ A H1 2009 PCR Not detected (NOT DETECT) 12/15/22 08:04 Adenovirus (PCR) Not detected (NOT DETECT) 12/15/22 08:04 C. pneumoniae DNA (PCR) Not detected (NOT DETECT) 12/15/22 08:04 Coronavirus 229E (PCR) Not detected (NOT DETECT) 12/15/22 08:04 Human Metapneumovir PCR Detected (NOT DETECT) A 12/15/22 08:04 Influenza A (H1) PCR Not detected (NOT DETECT) 12/15/22 08:04 Influenza A (H3) PCR Not detected (NOT DETECT) 12/15/22 08:04 Influenza Type A (PCR) Not detected (NOT DETECT) 12/15/22 08:04 Influenza Type B (PCR) Not detected (NOT DETECT) 12/15/22 08:04 M. pneumoniae (PCR) Not detected (NOT DETECT) 12/15/22 08:04 Parainfluenza 1 (PCR) Not detected (NOT DETECT) 12/15/22 08:04 Parainfluenza 2 (PCR) Not detected (NOT DETECT) 12/15/22 08:04 Parainfluenza 3 (PCR) Not detected (NOT DETECT) 12/15/22 08:04 Parainfluenza 4 (PCR) Not detected (NOT DETECT) 12/15/22 08:04 RSV Type A (PCR) Not detected (NOT DETECT) 12/15/22 08:04 RSV Type B (PCR) Not detected (NOT DETECT) 12/15/22 08:04 Entero/Rhino (PCR) Not detected (NOT DETECT) 12/15/22 08:04 SARS-CoV-2 (PCR) Not detected (NOT DETECT) 12/15/22 08:04 Vitals Last Vital Signs Temp 97.7 F 12/17/22 03:47 Pulse 80 12/17/22 03:47 Resp 17 12/17/22 03:47 BP 127/76 12/17/22 03:47 Pulse Ox 91 12/17/22 03:47 O2 Del Method 12/17/22 03:47 O2 Flow Rate 2 12/16/22 20:00 Discharge Plan Discharge Patient Disposition: Home Condition: Stable Prescriptions: New prednisone 20 mg Tablet 40 mg PO DAILY Qty: 6 0RF cefdinir 300 mg capsule 300 mg PO BID 5 Days Qty: 10 0RF albuterol sulfate 90 mcg/actuation HFA aerosol inhaler 1 inh inhalation Q6H PRN (Reason: shortness of breath or wheezing) Qty: 8.5 0RF Continued atorvastatin 40 mg tablet 40 mg PO BEDTIME Qty: 90 3RF clopidogrel 75 mg tablet 75 mg PO DAILY Qty: 90 3RF aspirin [Adult Aspirin Regimen] 81 mg tablet,delayed release (DR/EC) 81 mg PO DAILY buspirone 5 mg tablet 5 mg PO BID PRN (Reason: anxiety) Qty: 60 2RF loratadine 10 mg tablet 10 mg PO DAILY Qty: 30 0RF azelastine 137 mcg (0.1 %) aerosol,spray 2 spray intranasal BID Qty: 30 0RF Rx Instructions: administer into each nostril metoprolol succinate 25 mg tablet extended release 24 hr 25 mg PO DAILY Qty: 60 2RF pantoprazole 40 mg tablet,delayed release (DR/EC) 40 mg PO DAILY PRN (Reason: Acid Reflux) Discontinued lisinopril 20 mg tablet 20 mg PO DAILY Discharge Orders: Discharge Order (Routine); Ordered 12/17/22 Ordered By: Riley Jolly Referrals: Kandi Marquez FNP [Nurse Practitioner] - 2 weeks (Follow up change in BP med) Moi Fitzgerald FNP [Nurse Practitioner] - 4-7 days (message sent to clinic.) Discharge Diet: Cardiac Discharge Activity: Increase activity as tolerated Patient Instructions: Opioid Safety Activity Restrictions/Additional Instructions: Take all medicine as prescribed Follow-up with cardiology clinic in 2 weeks, primary care provider 4 to 7 days Return for any concerns Patient's Health Concerns: Shortness of breath Fainting episodes in the last several months Assessment: Pneumonia, bacterial superimposed on viral Syncope, likely related to orthostatic hypotension. Lisinopril discontinued Plan of Treatment: Finish antibiotic therapy Do not resume lisinopril Discharge Attestations Time Spent in Discharge Care*: greater than 30 min Quality Metrics Clinical Quality Measures [ No reported AMI, CVA or VTE this stay] Coding Level of Care Code 33771 Total time (in minutes) for Discharge: 35 Diagnoses Pneumonia J18.9 Viral illness B34.9 Acute kidney injury N17.9 Syncope R55 Coronary artery disease I25.10 Elevated troponin R77.8
[2022-12-17] MEDS: ipratropium-albuterol 3 mL Neb INHALATION (08:20)
[2022-12-17] MEDS: budesonide 0.5 mg/2 mL Neb INHALATION (08:21)
[2022-12-17] MEDS: aspirin 81 mg EC Tablet PO (08:57)
[2022-12-17] MEDS: clopidogrel 75 mg Tablet PO (08:57)
[2022-12-17] MEDS: metoprolol succinate ER (24 HR) 25 mg Tablet PO (08:57)
[2022-12-17] MEDS: pantoprazole DR 40 mg Tablet PO (08:58)
[2022-12-17] MEDS: azithromycin 250 mg Tablet 500 MG PO ×2 (08:58→08:59)
[2022-12-17] MEDS: predniSONE 20 mg Tablet 40 MG PO (08:59)
== END 2022-12-17 10:32 | disposition home or self-care (01) | DRG 194 ==
LOC: ER 10:44 → MEDSURG 11:04
PROVIDERS: Admitting Provider Internal Medicine; Emergency Provider Emergency Medicine; PCP Nurse Practitioner; Visit Provider Internal Medicine
DX: J12.3 Human metapneumovirus pneumonia (principal); N17.9 Acute kidney failure, unspecified; I95.1 Orthostatic hypotension; Z79.02 Long term (current) use of antithrombotics/antiplatelets; Z79.82 Long term (current) use of aspirin; N18.9 Chronic kidney disease, unspecified; I12.9 Hypertensive chronic kidney disease with stage 1 through stage 4 chronic kidney disease, or unspecified chronic kidney disease; I25.10 Atherosclerotic heart disease of native coronary artery without angina pectoris; K21.9 Gastro-esophageal reflux disease without esophagitis; E78.5 Hyperlipidemia, unspecified; Z87.891 Personal history of nicotine dependence; E83.42 Hypomagnesemia; E87.6 Hypokalemia
CPT/HCPCS: 36415; 70450; 71045; 72125; 80048; 80053; 81001; 83605; 83735; 83880; 84145; 84439; 84443; 84484; 85025; 86140; 87040; 87486; 87581; 87633; 93005; 94640; 96365; 96367; 96372; 99285; G0378; J0456; J0696; J1650; J3475; J3490; J7030; J7050; J7512; J7626; Q0144; Q3014

== ENCOUNTER → 2022-12-28 09:31 | Outpatient (BNVA) | payer MEDICARE, OTHER, SELFPAY | PROVIDERS: PCP Nurse Practitioner; Visit Provider Nurse Practitioner Family | DX: I25.10 Atherosclerotic heart disease of native coronary artery without angina pectoris (principal); I12.9 Hypertensive chronic kidney disease with stage 1 through stage 4 chronic kidney disease, or unspecified chronic kidney disease; N18.9 Chronic kidney disease, unspecified; Z87.891 Personal history of nicotine dependence; Z79.82 Long term (current) use of aspirin | CPT/HCPCS: 99214 ==

== ENCOUNTER → 2023-04-15 08:30 | Outpatient (BNVA) | payer MEDICARE, OTHER, SELFPAY | PROVIDERS: PCP Nurse Practitioner; Visit Provider Internal Medicine | DX: I25.10 Atherosclerotic heart disease of native coronary artery without angina pectoris (principal); E78.2 Mixed hyperlipidemia; Z95.5 Presence of coronary angioplasty implant and graft; Z87.891 Personal history of nicotine dependence; I12.9 Hypertensive chronic kidney disease with stage 1 through stage 4 chronic kidney disease, or unspecified chronic kidney disease; N18.9 Chronic kidney disease, unspecified | CPT/HCPCS: 99214 ==

== ENCOUNTER → 2023-10-20 10:19 | Outpatient (BNVA) | payer MEDICARE, OTHER, SELFPAY | PROVIDERS: PCP Nurse Practitioner; Visit Provider Nurse Practitioner Family | DX: I12.9 Hypertensive chronic kidney disease with stage 1 through stage 4 chronic kidney disease, or unspecified chronic kidney disease (principal); N18.9 Chronic kidney disease, unspecified; Z87.891 Personal history of nicotine dependence; I25.10 Atherosclerotic heart disease of native coronary artery without angina pectoris | CPT/HCPCS: 99214 ==

== ENCOUNTER → 2024-05-01 12:29 | Outpatient (BNVA) | payer MEDICARE, OTHER, SELFPAY | PROVIDERS: PCP Family Medicine; Visit Provider Internal Medicine | DX: Z09 Encounter for follow-up examination after completed treatment for conditions other than malignant neoplasm (principal); I25.10 Atherosclerotic heart disease of native coronary artery without angina pectoris; E78.2 Mixed hyperlipidemia; I10 Essential (primary) hypertension; Z95.5 Presence of coronary angioplasty implant and graft; Z87.891 Personal history of nicotine dependence | CPT/HCPCS: 99214 ==

== ENCOUNTER → 2025-02-13 13:28 | Outpatient (BNVA) | payer MEDICARE, OTHER, SELFPAY | PROVIDERS: PCP Family Medicine; Visit Provider Internal Medicine Cardiovascular Disease | DX: I25.10 Atherosclerotic heart disease of native coronary artery without angina pectoris (principal); I12.9 Hypertensive chronic kidney disease with stage 1 through stage 4 chronic kidney disease, or unspecified chronic kidney disease; N18.9 Chronic kidney disease, unspecified; E78.2 Mixed hyperlipidemia; Z79.82 Long term (current) use of aspirin; Z95.5 Presence of coronary angioplasty implant and graft; Z87.891 Personal history of nicotine dependence; I25.2 Old myocardial infarction | CPT/HCPCS: 99214 ==